=== PATIENT | female | born 1965 | race Caucasian/White ===

== ENCOUNTER 2019-12-16 12:39 | Outpatient (CLI) | payer BC, SELFPAY ==
--- NOTE | ~2019-12-16 | DEXA_ITS ---
Bone Density Report Name: Mimi Garrison Age: 54 Sex: Female Ethnicity: White Date of : 1965 Indication: osteopenia; Referring Provider: LENA NELSON Study: Bone densitometry was performed. Exam Date: December 16, 2019 Accession number: [id number] Bone Density: Region BMD T-score Z-score Classification AP Spine (L1-L4) 0.822 -2.0 -0.9 Osteopenia Femoral Neck (Left) 0.725 -1.1 0.0 Osteopenia Total Hip (Left) 0.908 -0.3 0.5 Normal Total Hip Bilateral Avg 0.922 -0.2 0.6 Normal Femoral Neck (Right) 0.739 -1.0 0.1 Normal Total Hip (Right) 0.936 0.0 0.7 Normal World Health Organization criteria for BMD impression classify patients as: Normal (T-score at or above -1.0), Osteopenia (T-score between -1.0 and -2.5), or Osteoporosis (T-score at or below -2.5). 10-year Fracture Risk(1): Major Osteoporotic Fracture 6.2% Hip Fracture 0.3% Reported Risk Factors: [place] (), Neck BMD=0.725, BMI=28.3 (1) FRAX(R) Version 3.08. Fracture probability calculated for an untreated patient. Fracture probability may be lower if the patient has received treatment. Previous Exams: Region Exam Age BMD T-score BMD Change BMD Change Date g/cm2 vs Baseline vs Previous AP Spine(L1-L4) 12/16/2019 54 0.822 -2.0 -0.053(-6.1%)# -0.043(-4.9%)* 04/03/2017 52 0.865 -1.7 -0.011(-1.2%)# -0.011(-1.2%)# 09/17/2013 48 0.876 -1.6 Total Hip(Left) 12/16/2019 54 0.908 -0.3 0.001(0.1%)# 0.006(0.6%) 04/03/2017 52 0.903 -0.3 -0.005(-0.5%)# -0.005(-0.5%)# 09/17/2013 48 0.907 -0.3 Total Hip(Right) 12/16/2019 54 0.936 0.0 0.010(1.0%)# 0.032(3.5%)* 04/03/2017 52 0.904 -0.3 -0.022(-2.4%)# -0.022(-2.4%)# 09/17/2013 48 0.927 -0.1 *Denotes significance at 95% confidence level, LSC for AP Spine = 0.022 g/cm2, LSC for Total Hip = 0.027 g/cm2 Clinical Information Provided by Patient: Has used the following medications: Calcium Patient maximum height was 61 Menopause Age: 49 No regular weight bearing exercise Drinks caffeinated beverages Onset of menses at age 13 Number of children 2 Impression: The patient has low bone mass, based on the Total Spine T-score. The patient has an estimated ten-year risk of hip fracture of 0.3% and an estimated ten-year risk of major fracture of 6.2%, based on the WHO FRAX algorithm. The BMD for the AP Spine(L1-L4) decreased, changing by -4.9% since the last DXA exam. Discussion:
== END 2019-12-16 12:40 | disposition home or self-care (01) ==
PROVIDERS: PCP Internal Medicine; Visit Provider Obstetrics & Gynecology Gynecology
DX: Z78.0 Asymptomatic menopausal state (principal); M85.89 Other specified disorders of bone density and structure, multiple sites
CPT/HCPCS: 77080

== ENCOUNTER 2020-01-28 11:16 | Outpatient (CLI) | payer BC, SELFPAY ==
--- NOTE | ~2020-01-28 | XR_ITS ---
XR hip RT min 3V w AP pelvis DATE: 01/28/2020 11:48 INDICATION: Right hip pain TECHNIQUE: AP pelvis. AP, lateral, crosstable lateral views of right hip COMPARISON: None FINDINGS: The pubic symphysis and sacroiliac joints are intact. No pelvic fracture or bone destructio n. The hip joint spaces appear symmetric and well preserved. No fracture, dislocation, avascular necr osis or bone destruction of the right hip. IMPRESSION: No significant abnormality Reviewed, dictated and finalized at location A. IMPRESSION: No significant abnormality
== END 2020-01-28 11:17 | disposition home or self-care (01) ==
LOC: ANHIMG 11:21
PROVIDERS: PCP Internal Medicine; Visit Provider Physician Assistant
DX: M25.551 Pain in right hip (principal)
CPT/HCPCS: 73502

== ENCOUNTER 2020-05-25 10:35 | Outpatient (CLI) | payer BC, SELFPAY ==
--- NOTE | ~2020-05-25 | MM_ITS ---
EXAMINATION: MM screening kiko BI w therese HISTORY: Screening TECHNIQUE: Craniocaudal and mediolateral oblique 3-D tomosynthesis images were obtained and synthetic 2-D images were generated. CAD analysis was submitted and interpreted. COMPARISON: Comparison to multiple prior studies sequentially, with oldest reviewed study dated 12/16. BREAST PARENCHYMAL COMPOSITION: There are scattered areas of fibroglandular density. FINDINGS: There is no evidence of suspicious mass, calcification, or architectural distortion to sugg est malignancy in either breast. There has been no suspicious interval change. IMPRESSION: 1. No mammographic evidence of malignancy. 2. Recommend routine screening mammography in one year. BI-RADS Category 1: Negative Reviewed, dictated and finalized at location A.
== END 2020-05-25 10:36 | disposition home or self-care (01) ==
LOC: ANHIMG 10:38
PROVIDERS: PCP Internal Medicine; Visit Provider Obstetrics & Gynecology Gynecology
DX: Z12.31 Encounter for screening mammogram for malignant neoplasm of breast (principal)
CPT/HCPCS: 77063; 77067

== ENCOUNTER 2021-03-20 08:08 | Outpatient (CLI) | payer BC, SELFPAY ==
--- NOTE | 2021-03-20 11:30 | NEURO_ITS ---
Impression: # Complains of numbness of hands. # Bilateral Carpal Tunnel Syndrome, left more than right. # No ulnar neuropathy. # Normal needle/EMG exam. Nerve Conduction Studies Anti Sensory Summary Table Stim Site NR Peak (ms) P-T Amp (?V) Site1 Site2 Delta-P (ms) Dist (cm) Felipe (m/s) Left Median Anti Sensory (2-3nd Digit) Wrist 3.6 74.2 Wrist 2-3nd Digit 3.6 14.0 39 Wrist 3.6 82.5 Wrist 2-3nd Digit 3.6 14.0 39 Right Median Anti Sensory (2-3nd Digit) Wrist 4.4 37.5 Wrist 2-3nd Digit 4.4 14.0 32 Wrist 5.0 25.7 Wrist 2-3nd Digit 4.4 14.0 32 Left Radial Anti Sensory (Base 1st Digit) Wrist 2.0 17.3 Wrist Base 1st Digit 2.0 0.0 Right Radial Anti Sensory (Base 1st Digit) Wrist 1.8 42.9 Wrist Base 1st Digit 1.8 0.0 Left Ulnar Anti Sensory (5th Digit) Wrist 2.2 61.6 Wrist 5th Digit 2.2 14.0 64 Right Ulnar Anti Sensory (5th Digit) Wrist 2.4 65.8 Wrist 5th Digit 2.4 14.0 58 Motor Summary Table Stim Site NR Onset (ms) O-P Amp (mV) Site1 Site2 Delta-0 (ms) Dist (cm) Felipe (m/s) Left Median Motor (Abd Poll Brev) Wrist 4.5 3.6 Elbow Wrist 3.8 26.0 68 Elbow 8.3 3.3 Right Median Motor (Abd Poll Brev) Wrist 3.8 0.8 Elbow Wrist 4.7 27.0 57 Elbow 8.5 1.8 ELB/ADM Wrist 0.5 0.0 Left Ulnar Motor (Abd Dig Minimi) Wrist 1.9 5.3 A Elbow Wrist 4.6 27.0 59 A Elbow 6.5 3.1 Right Ulnar Motor (Abd Dig Minimi) Wrist 2.0 7.2 A Elbow Wrist 4.7 27.0 57 A Elbow 6.7 6.0 B Elbow Wrist 6.2 0.0 F Wave Studies NR F-Lat (ms) L-R F-Lat (ms) Left Median (Mrkrs) (Abd Poll Brev) 30.02 0.57 Right Median (Mrkrs) (Abd Poll Brev) 30.58 0.57 Left Ulnar (Mrkrs) (Abd Dig Min) 25.47 0.68 Right Ulnar (Mrkrs) (Abd Dig Min) 26.15 0.68 EMG Side Muscle Nerve Root Ins Act Fibs Amp Dur Recrt Comment Right 1stDorInt Ulnar C8-T1 Nml Nml Nml Nml Nml Right Ext Indicis Radial (Post Int) C7-8 Nml Nml Nml Nml Nml Right Ext Digitorum Radial (Post Int) C7-8 Nml Nml Nml Nml Nml Right BrachioRad Radial C5-6 Nml Nml Nml Nml Nml Right PronatorTeres Median C6-7 Nml Nml Nml Nml Nml Right Abd Poll Brev Median C8-T1 Nml Nml Nml Nml Nml Left 1stDorInt Ulnar C8-T1 Nml Nml Nml Nml Nml Left Ext Indicis Radial (Post Int) C7-8 Nml Nml Nml Nml Nml Left Ext Digitorum Radial (Post Int) C7-8 Nml Nml Nml Nml Nml Left BrachioRad Radial C5-6 Nml Nml Nml Nml Nml Left PronatorTeres Median C6-7 Nml Nml Nml Nml Nml Left Abd Poll Brev Median C8-T1 Nml Nml Nml Nml Nml Right ABD Dig Min Ulnar C8-T1 Nml Nml Nml Nml Nml Left ABD Dig Min Ulnar C8-T1 Nml Nml Nml Nml Nml MTDD
== END 2021-03-20 08:09 | disposition home or self-care (01) ==
PROVIDERS: PCP Internal Medicine; Visit Provider Internal Medicine
DX: R20.2 Paresthesia of skin (principal); G56.03 Carpal tunnel syndrome, bilateral upper limbs
CPT/HCPCS: 95886; 95911

== ENCOUNTER 2021-05-31 14:15 | Outpatient (CLI) | payer BC, SELFPAY ==
--- NOTE | ~2021-05-31 | MM_ITS ---
EXAMINATION: MM screening kiko BI w therese HISTORY: Screening mammogram TECHNIQUE: Craniocaudal and mediolateral oblique 3-D tomosynthesis images were obtained and synthetic 2-D images were generated. CAD analysis was submitted and interpreted. COMPARISON: 05/25/2020 bilateral digital screening mammogram 03/02/2019 bilateral diagnostic digital mammogram and limited left breast ultrasound examination 04/09/2018 bilateral digital screening mammogram BREAST PARENCHYMAL COMPOSITION: There are scattered areas of fibroglandular density. FINDINGS: There is no evidence of suspicious mass, calcification, or architectural distortion to sugg est malignancy in either breast. There has been no suspicious interval change. IMPRESSION: 1. No mammographic evidence of malignancy. 2. Recommend routine screening mammography in one year. BI-RADS Category 1: Negative Reviewed, dictated and finalized at location A.
== END 2021-05-31 14:16 | disposition home or self-care (01) ==
LOC: ANHIMG 14:19
PROVIDERS: PCP Internal Medicine; Visit Provider Obstetrics & Gynecology Gynecology
DX: Z12.31 Encounter for screening mammogram for malignant neoplasm of breast (principal)
CPT/HCPCS: 77063; 77067

== ENCOUNTER 2021-08-02 00:03 | Day surgery (SDC) | payer BC, SELFPAY ==
[2021-05-21 12:16] VITALS: BMI 30.8
--- NOTE | 2021-05-23 09:08 | WPDANESEPPF ---
Anes - Initial Pre Proc Eval Procedure: Operation Date: 05/24/21 14:00 Proposed Procedures p Right Carpal Tunnel Release - Milton Beck MD Date/Time: 05/23/21 09:08 Surgeon: Milton Beck MD Pre Op Diagnosis: right carpal tunnel syndrome Patient Data Age: 56 Gender: F Height: 1.55 m Weight: 74 kg Allergies Allergy/AdvReac Type Severity Reaction Status Date / Time cefaclor Allergy Intermediate Swelling Verified 05/21/21 12:35 of Lip/Tongue/Throat Cephalosporins Allergy Intermediate THROAT/MOUTH Verified 05/21/21 12:35 SWELLING Penicillins Allergy Intermediate Swelling Verified 05/21/21 12:35 of Lip/Tongue/Throat vancomycin Allergy Intermediate Rash Verified 05/21/21 12:35 Home Medications Medication Instructions Recorded Confirmed Type calcium carbonate 600 mg(1,500 1 tablet PO BID 07/31/19 05/21/21 History mg)-vitamin D3 800 unit chewable tablet multivitamin 1 tablet PO DAILY 07/31/19 05/21/21 History albuterol sulfate 90 mcg/actuation 2 puff INHALATION Q4-6H PRN #8.5 gm 12/24/19 05/21/21 Rx aerosol inhaler estradiol 1 mg-progesterone 100 mg 1 cap PO QPM 04/24/20 05/21/21 History capsule meloxicam 15 mg tablet 15 mg PO DAILY #90 tablet 08/04/20 05/21/21 Rx montelukast 10 mg tablet 10 mg PO DAILY #90 tablet 08/04/20 05/21/21 Rx hydroxychloroquine 200 mg tablet 200 mg PO BID #180 tablet 08/18/20 05/21/21 Rx cyclobenzaprine 10 mg tablet 10 mg PO .QHS PRN #30 tablet 09/05/20 05/21/21 Rx nortriptyline 50 mg capsule 50 mg PO DAILY #90 cap 09/13/20 05/21/21 Rx topiramate 100 mg tablet 100 mg PO DAILY #90 tablet 09/13/20 05/21/21 Rx rizatriptan 10 mg tablet 10 mg PO ONCE PRN #36 tablet 01/11/21 05/21/21 Rx fluoxetine 20 mg capsule 20 mg PO DAILY #90 cap 04/06/21 05/21/21 Rx galcanezumab-gnlm 120 mg/mL 120 mg SUBCUT MONTHLY #3 ml 04/10/21 05/21/21 Rx subcutaneous pen injector rabeprazole 20 mg tablet,delayed 20 mg PO DAILY #90 tablet 05/02/21 05/21/21 Rx release [facility] Past Medical History Medical History (Updated 05/23/21 @ 09:09 by Andrew Perdue DO) GERD (gastroesophageal reflux disease) PONV (postoperative nausea and vomiting) severe Family History Family History (Updated 05/19/14 @ 07:13 by DOCTOR UNKNOWN) Mother Family history of chronic obstructive pulmonary disease Patient's mother is Father Patient's father is Social History Social History Smoking status: Former smoker Tobacco type: cigarettes Second hand tobacco smoke exposure: No Smoking end date: 09/22/96 Alcohol intake: current Substance use: never Substance use type: does not use Last use: 1994 Spiritual care concerns: No Anes - Eval Final PreProcedure Day of Procedure 05/23/21 09:08 Patient weight: obese Heart: regular rate and rhythm Lungs: clear to auscultation and normal air movement Airway: Mallampati scale class II Neurological: alert and oriented Last oral intake: >/= 8 hours ASA classification: II Emergent: no Anesthetic plan: proceed Anesthesia type and monitoring: general GIVS and standard monitoring Informed Consent: The patient's anesthetic plan and its attendant risks and benefits were discussed with the patient/family/POA. Questions were solicited and answers provided to the satisfaction of the patient/family/POA.
[2021-07-30 08:50] VITALS: BMI 30.8
--- NOTE | 2021-07-30 08:54 | PC.NURSE ---
Report to the Outpatient Waiting Room, entrance under the green pavilion located off [facility], at time 0830 on date 08/02/21. OR Time: 1030. - You and your visitor will be asked a series of questions to screen for COVID 19 for your protection. - A mask is required within the hospital. - Only one visitor is allowed at this time. Patient visitors will be guided where to wait when not with patient. Preoperative COVID Testing Requirements: TO BRING COPY OF CARD! No COVID Test needed if: (proof is required; if not received patient will have Rapid Test prior to entry) - Patient has received COVID Vaccine at least 14 days prior to procedure date or - Patient has positive COVID test result within last 90 days of surgery date. COVID Test needed if above criteria is not met If not COVID vaccinated a COVID test must be conducted within 72 hours of surgery and patient is asked to isolate self from time of testing until procedure. You will go to the [employer] [facility] for your COVID testing. The [employer] [facility] site is located at the corner of [address] [facility]. You will only be called if COVID results are positive and your surgeon may reschedule your elective surgery date. Patients may have clear liquids (water, carbonated beverages, clear teas, apple juice) until 3 hours prior to surgery with a maximum of 20 ounces. - No food from midnight until time of surgery - Infants may have breast milk until 4 hours before surgery, formula 6 hours prior to surgery. - Children will be allowed to drink immediately following surgery. If applicable, please bring a bottle or sippy cup to assist with drinking. Juice, water, soda, and popsicles are readily available. For infants on formula, please bring formula the day of surgery. Pacifiers are allowed. Take the following medications with a SIP of water the morning of surgery: FLUOXETINE, TOPIRAMATE, NORTRIPTYLINE, PLAQUENIL Medications to discontinue per physician: VITAMINS/SUPPLEMENTS Date to take last dose: 3 DAYS PRE-OP-----MELOXICAM PER DR. PANTOJA Please no make-up, nail montserratian, hairspray, perfume, deodorant, or body powder the day of surgery. No jewelry (including any body piercings) or valuables the day of surgery, leave them at home. Please take a shower or bath the night before, or the morning of, surgery with an antibacterial soap. Wear comfortable, loose fitting clothing. Children are encouraged to wear pajamas. - Jewelry must be removed prior to entering the operating room. Rings and piercings that are not removed may be cut off. - The hospital will not accept responsibility for valuables. - Please leave all valuables, including medications, at home the day of surgery. If you are going home after surgery, a licensed local company flatbed truck driver must drive you home. - NO public transportation without another adult. - We recommend that an adult stay with you for 24 hours following discharge. - We also recommend that you do not drive, make important decision, drink alcoholic beverages, or take any drugs that were not prescribed by your health care provider for at least 24 hours after your discharge time. For Pediatric surgeries, we recommend two adults accompany the child home (only one inside the building at this time). Follow any additional instructions given to you from your surgeon. Telephone instructions given to ANNIKA NDIAYE and asked if any additional questions and then verbalized understanding. Patient advised to call surgeon office or pre surgery nurse liaison [phone] if any additional questions.
--- NOTE | 2021-08-01 13:53 | WPDANESEPPF ---
Anes - Initial Pre Proc Eval Procedure: Operation Date: 08/02/21 10:30 Proposed Procedures p Right Carpal Tunnel Release - Milton Beck MD Date/Time: 08/01/21 13:53 Surgeon: Milton Beck MD Pre Op Diagnosis: right carpal tunnel syndrome Patient Data Age: 56 Gender: F Height: 1.55 m Weight: 74 kg Allergies Allergy/AdvReac Type Severity Reaction Status Date / Time cefaclor Allergy Intermediate Swelling Verified 08/02/21 08:34 of Lip/Tongue/Throat Cephalosporins Allergy Intermediate THROAT/MOUTH Verified 08/02/21 08:34 SWELLING Penicillins Allergy Intermediate Swelling Verified 08/02/21 08:34 of Lip/Tongue/Throat vancomycin Allergy Intermediate Rash Verified 08/02/21 08:34 Home Medications Medication Instructions Recorded Confirmed Type calcium carbonate 600 mg(1,500 1 tablet PO BID 07/31/19 08/02/21 History mg)-vitamin D3 800 unit chewable tablet multivitamin 1 tablet PO DAILY 07/31/19 08/02/21 History estradiol 1 mg-progesterone 100 mg 1 cap PO QPM 04/24/20 08/02/21 History capsule meloxicam 15 mg tablet 15 mg PO DAILY #90 tablet 08/04/20 08/02/21 Rx montelukast 10 mg tablet 10 mg PO DAILY #90 tablet 08/04/20 08/02/21 Rx hydroxychloroquine 200 mg tablet 200 mg PO BID #180 tablet 08/18/20 08/02/21 Rx fluoxetine 20 mg capsule 20 mg PO DAILY #90 cap 04/06/21 08/02/21 Rx galcanezumab-gnlm 120 mg/mL 120 mg SUBCUT MONTHLY #3 ml 04/10/21 08/02/21 Rx subcutaneous pen injector rabeprazole 20 mg tablet,delayed 20 mg PO DAILY #90 tablet 05/02/21 08/02/21 Rx release topiramate 100 mg tablet 100 mg PO DAILY #90 tablet 07/06/21 08/02/21 Rx nortriptyline 50 mg capsule 50 mg PO DAILY #90 cap 08/01/21 08/02/21 Rx Patient hx anesthesia problems: none Family hx anesthesia problems: none Results Review: All pre-operative results and documents have been reviewed as part of the pre-operative evaluation. [facility] Past Medical History Medical History (Updated 08/01/21 @ 13:53 by Kirit Anna MD) GERD (gastroesophageal reflux disease) Hyperlipidemia Obesity PONV (postoperative nausea and vomiting) severe Family History Family History Mother Family history of chronic obstructive pulmonary disease Patient's mother is Father Patient's father is Social History Social History Smoking packs per day: 1 Smoking cigarettes per day: 20.0 Years smoked: 19 Smoking pack-years: 19.00 Smoking status: Former smoker Tobacco type: cigarettes Second hand tobacco smoke exposure: No Smoking end date: 09/22/96 Alcohol intake: current Drinks per week: 1 Substance use: never Substance use type: does not use Living arrangements: with family Spiritual care concerns: No Anes - Eval Final PreProcedure Day of Procedure 08/01/21 13:53 Patient weight: obese Heart: regular rate and rhythm Lungs: clear to auscultation and normal air movement Airway: Mallampati scale class II Neurological: alert and oriented Last oral intake: >/= 8 hours ASA classification: II Emergent: no Anesthetic plan: proceed Anesthesia type and monitoring: general GIVS Results Review: All pre-operative results and documents have been reviewed as part of the pre-operative evaluation. Informed Consent: The patient's anesthetic plan and its attendant risks and benefits were discussed with the patient/family/POA. Questions were solicited and answers provided to the satisfaction of the patient/family/POA.
--- NOTE | 2021-08-02 07:16 | WPDHPUPDATE1 ---
History and Physical Update Update Date/Time: 08/02/21 07:16 History and Physical has been reviewed, including an updated exam of the patient. There are NO changes in the patient's condition. Risks, benefits, and alternatives have been discussed and questions answered. Patient agrees to proceed with procedure.
[2021-08-02 08:43] VITALS: BP 120/79; PULSE 98; RESP 16; TEMP 36.9; O2SAT 99
[2021-08-02] MEDS: ACETAMINOPHEN 500 MG TABLET 1000 MG PO (08:59)
[2021-08-02] MEDS: LACTATED RINGERS 1,000 ML 30 ML IV CONT (08:59)
[2021-08-02] MEDS: KETOROLAC 15 MG/ML VIAL (*BKC) IV PUSH (09:01)
[2021-08-02 10:40] VITALS: BP 110/61; PULSE 52; RESP 19; O2SAT 99
[2021-08-02 10:50] VITALS: BP 110/68; PULSE 80; RESP 16; O2SAT 100
[2021-08-02 10:55] VITALS: BP 123/75; PULSE 77; RESP 16; O2SAT 99
--- NOTE | 2021-08-02 13:15 | P.OP_ITS ---
Procedure Note - Detailed Date of Procedure 08/02/21 Pre-op Diagnosis right carpal tunnel syndrome Post-op Diagnosis same Procedure Performed Right carpal tunnel release. Surgeon Milton Beck MD [employer] PA-C Anesthesia general Description of Procedure Operative details. The hand was prepped and draped in the usual sterile fashion sedation anesthesia was given with propofol. The proposed incision was marked using typical anatomic landmarks. 3ML 0.5% Marcaine was injected along the incision line and at the distal forearm. The limb was exsanguinated and the tourniquet inflated to 250 millimeters of mercury. A longitudinal incision was taken sharply. Dissection was brought down to the transverse carpal ligament. Under direct vision the ligament was incised sharply. The proximal release was carried out with dissection scissors. The contents of the carpal canal were protected with a [place] elevator. The transverse carpal ligament was confirmed to be widely patent. The tourniquet was released. Hemostasis was obtained. The wound was closed with a horizontal mattress Prolene suture. A sterile bulky dressing was applied. The patient was brought to the recovery room in stable condition. There were no complications. Estimated Blood Loss 2 Drains No Pathology none sent Complications No immediate complications Condition stable Disposition PACU
== END 2021-08-02 11:27 | disposition home or self-care (01) ==
PROVIDERS: PCP Internal Medicine; Visit Provider Orthopaedic Surgery
PROC: (CPT 64721; principal; 2021-08-02 10:30)
DX: G56.01 Carpal tunnel syndrome, right upper limb (principal); E78.5 Hyperlipidemia, unspecified; K21.9 Gastro-esophageal reflux disease without esophagitis; Z87.891 Personal history of nicotine dependence; E66.9 Obesity, unspecified; Z68.31 Body mass index [BMI] 31.0-31.9, adult
CPT/HCPCS: 64721; A9270; J1885; J2704; J7120

== ENCOUNTER 2022-09-26 14:45 | Outpatient (CLI) | payer BC, SELFPAY ==
--- NOTE | ~2022-09-26 | MM_ITS ---
EXAMINATION: MM screening [facility] BI w therese HISTORY: Screening mammogram TECHNIQUE: Craniocaudal and mediolateral oblique 3-D tomosynthesis images were obtained and synthetic 2-D images were generated. CAD analysis was submitted and interpreted. COMPARISON: 05/31/2021, 05/25/2020, 03/02/2019, 04/09/2018 BREAST PARENCHYMAL COMPOSITION: There are scattered areas of fibroglandular density. FINDINGS: No suspicious mass, calcification, or architectural distortion are identified in either dee ast to suggest malignancy. There has been no suspicious interval change. IMPRESSION: 1. No mammographic evidence of malignancy. 2. Recommend routine screening mammography in one year. BI-RADS Category 1: Negative Reviewed, dictated and finalized at location A. 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
--- NOTE | ~2022-09-26 | DEXA_ITS ---
Bone Density Report Name: ANNIKA NDIAYE Age: 57 Sex: Female Ethnicity: White Date of : 1965 Indication: postmenopausal; screening for osteoporosis; Referring Provider: LENA NELSON Study: Bone densitometry was performed. Exam Date: September 26, 2022 Accession number: [id number] Bone Density: Region BMD T-score Z-score Classification AP Spine(L1-L4) 0.861 -1.7 -0.3 Osteopenia Femoral Neck (Left) 0.735 -1.0 0.2 Normal Total Hip (Left) 0.875 -0.5 0.4 Normal Femoral Neck (Right) 0.733 -1.0 0.2 Normal Total Hip (Right) 0.903 -0.3 0.6 Normal Total Hip Mean 0.889 -0.4 0.5 Normal World Health Organization criteria for BMD impression classify patients as: Normal (T-score at or above -1.0), Osteopenia (T-score between -1.0 and -2.5), or Osteoporosis (T-score at or below -2.5). 10-year Fracture Risk(1): Major Osteoporotic Fracture 6.6% Hip Fracture 0.3% Reported Risk Factors: [place] (), Neck BMD=0.735, BMI=32.3 (1) FRAX(R) Version 3.08. Fracture probability calculated for an untreated patient. Fracture probability may be lower if the patient has received treatment. Previous Exams: Region Exam Age BMD T-score BMD Change BMD Change Date g/cm2 vs Baseline vs Previous Total Hip(Left) 09/26/2022 57 0.875 -0.5 -0.032 (-3.5%) -0.033 (-3.6%) 12/16/2019 54 0.908 -0.3 0.001 (0.1%)# 0.006 (0.6%) 04/03/2017 52 0.903 -0.3 -0.005 (-0.5%) -0.005 (-0.5%) 09/17/2013 48 0.907 -0.3 Total Hip(Right) 09/26/2022 57 0.903 -0.3 -0.023 (-2.5%) -0.033 (-3.5%) 12/16/2019 54 0.936 0.0 0.010 (1.0%)# 0.032 (3.5%)* 04/03/2017 52 0.904 -0.3 -0.022 (-2.4%) -0.022 (-2.4%) 09/17/2013 48 0.927 -0.1 *Denotes significance at 95% confidence level, LSC for Total Hip = 0.027 g/cm2 # Denotes dissimilar scan types or analysis methods Clinical Information Provided by Patient: Has used the following medications: Vitamin D, Calcium Patient maximum height was 61 Menopause Age: 50 No regular weight bearing exercise Drinks caffeinated beverages Onset of menses at age 13 Number of children 2 Impression: The patient has low bone mass, based on the Total Spine T-score. The patient has an estimated ten-year risk of hip fracture of 0.3% and an estimated ten-year risk of major fracture of 6.6%, based on the WHO FRAX algorithm. The BMD for the Total Hip(Left) decreased, changing by -3.6% since the last DXA exam. The BMD for the Total Hip(Right
== END 2022-09-26 14:46 | disposition home or self-care (01) ==
PROVIDERS: PCP Internal Medicine; Visit Provider Obstetrics & Gynecology Gynecology
DX: Z12.31 Encounter for screening mammogram for malignant neoplasm of breast (principal); Z78.0 Asymptomatic menopausal state; M85.89 Other specified disorders of bone density and structure, multiple sites
CPT/HCPCS: 77063; 77067; 77080

== ENCOUNTER 2023-01-31 07:40 | Outpatient (CLI) | payer BC, SELFPAY ==
--- NOTE | ~2023-01-31 | CT_ITS ---
CT scan of the Neck Technique: 2.5 mm axial scans were obtained through the neck after intravenous administration of 75 c c Omnipaque 350. Coronal and sagittal reconstructions of the neck were obtained. Dose reduction techn ique was used on this scan by utilizing automated exposure control and iterative reconstruction techn ique. The dose-length product (DLP) was 582.30 mGy-cm. Clinical History: Left supraclavicular mass Findings: There is no evidence of any significant cervical lymphadenopathy. Several small, nonenlarged jugulo- digastric and posterior cervical lymph nodes are noted bilaterally. Parapharyngeal spaces appear norm al bilaterally. The parotid and submandibular glands appear normal. The pharyngeal mucosal spaces appear normal. No soft tissue masses are seen in the neck. The thyroid gland appears normal. Images of the lung apices reveal mild biapical groundglass opacity, nonspecific. Impression: No significant abnormalities noted in the neck. In particular, no left supraclavicular mass seen. Mild biapical pulmonary groundglass opacity, nonspecific. Reviewed, dictated and finalized at [facility]. Impression: No significant abnormalities noted in the neck. In particular, no left supracla vicular mass seen. Mild biapical pulmonary groundglass opacity, nonspecific.
== END 2023-01-31 07:41 | disposition home or self-care (01) ==
PROVIDERS: PCP Internal Medicine; Visit Provider Internal Medicine
DX: R22.2 Localized swelling, mass and lump, trunk (principal)
CPT/HCPCS: 70491; Q9967

== ENCOUNTER 2023-05-15 13:35 | Outpatient (CLI) | payer BC, SELFPAY ==
--- NOTE | ~2023-05-15 | CT_ITS ---
EXAMINATION: CT brain w con DATE: 05/15/2023 15:20 INDICATION: Migraine headache TECHNIQUE: Computed tomography (CT) of the head was performed with 100 CC Omnipaque 350 intravenous c ontrast. The mA was adjusted according to patient size. Iterative reconstruction technique was employ ed. Exam dose: 605.33 mGy-cm total exam DLP. COMPARISON: 04/04/2016 CT brain FINDINGS: No intracranial mass lesion or hemorrhage or cerebrovascular accident. No midline shift or mass effect. Normal ventricular size. Normal bob-white matter differentiation. No subdural or epidural hematoma. Bilateral nasal antral windows are suggested. The mastoid air cells and included paranasal sinuses ar e normally developed and aerated. No fracture or bone destruction of the cranial vault. IMPRESSION: No significant intracranial abnormality Reviewed, dictated and finalized at [facility]. Reviewed, dictated and finalized at location A.
[2023-05-15 15:11] LABS: Estimated Glomerular Filt Rate 51
== END 2023-05-15 13:36 | disposition home or self-care (01) ==
LOC: ANHIMG 13:37
PROVIDERS: PCP Internal Medicine; Visit Provider Internal Medicine
DX: G43.909 Migraine, unspecified, not intractable, without status migrainosus (principal); Z82.49 Family history of ischemic heart disease and other diseases of the circulatory system; R42 Dizziness and giddiness
CPT/HCPCS: 70460; Q9967

== ENCOUNTER 2023-05-23 08:33 | Outpatient (CLI) | payer BC, SELFPAY ==
--- NOTE | ~2023-05-23 | CT_ITS ---
EXAMINATION: CTA chest DATE: 05/23/2023 09:12 INDICATION: Chest pain. TECHNIQUE: Computed tomographic angiography (CTA) of the chest was performed with 100 mL Omnipaque-35 0 intravenous contrast. Automated exposure control and iterative reconstruction technique were employ ed. The dose-length product was 384.30 mGy-cm. Maximum intensity projection 3D-reconstructions of the aorta and other arteries were constructed by the technologist on a separate workstation. COMPARISON: Neck CT 01/31/2023 FINDINGS: There is mild emphysema. There is mild peripheral septal thickening in the lungs. No bronch iectasis or honeycombing. No pleural effusion. The heart size is normal. No pericardial effusion. Tho racic aorta is normal. There are changes of cholecystectomy. There is no significant stenosis of rakesh ac axis, superior mesenteric artery, or the renal arteries. There is thoracic dextroscoliosis and mil d spondylosis. IMPRESSION: 1. Normal thoracic aorta. 2. Mild emphysema. 3. Mild peripheral septal thickening in the lungs again seen, likely mild chronic lung disease. Reviewed, dictated and finalized at location E. IMPRESSION: 1. Normal thoracic aorta. 2. Mild emphysema. 3. Mild peripheral septal thickening in the lungs again seen, likely mild chron ic lung disease.
--- NOTE | ~2023-05-23 | US_ITS ---
EXAMINATION: US carotid duplex BI DATE: 05/23/2023 10:12 INDICATION: Dizziness and giddiness TECHNIQUE: Grayscale, color Doppler, and pulsed Doppler images of the cervical carotid arteries were obtained. The degree of vessel stenosis is placed in one of the following categories: normal, <50%, 5 0-69%, >=70% but less than near-occlusion, near-occlusion, or total occlusion. Note that percent sten osis relative to normal distal artery lumen diameter is indirectly measured from velocity measurement s as described by Jose, et al. Radiology 2003; 229:340-346. COMPARISON: None. FINDINGS: RIGHT: The right common carotid artery (CCA) peak systolic velocity (PSV) is 117 cm/s. The right internal ca rotid artery (ICA) PSV is 92 cm/s. The right ICA end-diastolic velocity (EDV) is 46 cm/s. The right I CA/CCA PSV ratio is 0.8. Grayscale and color Doppler images yield an estimate of <50% diameter reduct ion from plaque in the ICA. The external carotid artery (ECA) PSV is 78 cm/s. There is antegrade flow in the right vertebral artery. LEFT: The left CCA PSV is 89 cm/s. The left ICA PSV is 89 cm/s. The left ICA EDV is 43 cm/s. The left ICA/C CA PSV ratio is 1.0. Grayscale and color Doppler images yield an estimate of <50% diameter reduction from plaque in the ICA. The ECA PSV is 87 cm/s. There is antegrade flow in the left vertebral artery. Notes: normal: PSV<125 and no plaque <50%: PSV<125 (EDV<40;ICA/CCA PSV ratio<2.0; use these factors only if tandem lesions or low cardiac output or contralateral disease) 50-69%: PSV 125-230 (EDV 40-100;ratio 2.0-4.0) >=70% but less than near occlusion: PSV>230(EDV>100;ratio>4.0) near-occlusion: PSV variable; markedly narrowed lumen occlusion: absent flow on color/spectral Doppler and no lumen on grayscale IMPRESSION: 1. stenosis in the right internal carotid artery. 2. stenosis in the left internal carotid artery. Reviewed, dictated and finalized at location A.
== END 2023-05-23 08:34 | disposition home or self-care (01) ==
PROVIDERS: PCP Internal Medicine; Visit Provider Internal Medicine
DX: R42 Dizziness and giddiness (principal); R07.9 Chest pain, unspecified; Z82.49 Family history of ischemic heart disease and other diseases of the circulatory system; J43.9 Emphysema, unspecified; R91.8 Other nonspecific abnormal finding of lung field; I65.23 Occlusion and stenosis of bilateral carotid arteries
CPT/HCPCS: 71275; 93880; Q9967

== ENCOUNTER 2023-06-13 09:24 | Outpatient (CLI) | payer BC, SELFPAY ==
--- NOTE | 2023-06-13 09:27 | ECHO_ITS ---
Patient Info Name: Mimi Garrison Age: 58 years : 1965 Gender: Female Ht: 61 in Wt: 168 lbs BSA: 1.84 m2 HR: 104 bpm BP: 116 / 83 mmHg Heart Rhythm: Sinus Rhythm Technical Quality: Fair Exam Date: 06/13/2023 9:45 AM Exam Location: [facility] Patient Status: Outpatient Admit Date: 06/13/2023 Staff Ordering Physician: Chucho Bentley DO Lab Asst: Danii Hidalgo RDCS Attending Provider: Chucho Bentley DO Referring Physician: Sheree QUINTERO; Exam Type: CA echo doppler color flow Study Info Indications Z82.49 - Family history of ischemic heart disease and other diseases of the circulatory system Complete two-dimensional, color flow and Doppler transthoracic echocardiogram is performed. Summary 1. Complete two-dimensional, color flow and Doppler transthoracic echocardiogram is performed. 2. Left ventricular chamber dimension is normal. 3. Left ventricular systolic function is normal, estimated at 65-70%. 4. The left ventricular diastolic function is grade I diastolic dysfunction. 5. E/e' 9 is minimally elevated. 6. No pulmonary hypertension, estimated pulmonary arterial systolic pressure is 27 mmHg. Left Ventricle E/e' 9 is minimally elevated. Left ventricular chamber dimension is normal. Left ventricular systolic function is normal, estimated at 65-70%. The left ventricular diastolic function is grade I diastolic dysfunction. Right Ventricle Right ventricular systolic function is normal and with normal TAPSE 2.0 cm. Right ventricular chamber dimension is normal. Left Atria Left atrial chamber dimension is normal. Right Atria Right atrial chamber dimension is normal. Aortic Valve The aortic valve is trileaflet. There is no aortic valve stenosis. There is no aortic valve regurgitation. Pulmonic Valve There is no pulmonic regurgitation. Mitral Valve There is no mitral valve stenosis. There is no mitral valve regurgitation. Tricuspid Valve There is no tricuspid valve regurgitation. No pulmonary hypertension, estimated pulmonary arterial systolic pressure is 27 mmHg. Pericardium/Pleural There is no pericardial effusion. Inferior Vena Cava Normal inferior vena cava with >50% collapse upon inspiration consistent with normal right atrial pressure, 5 mmHg. Aorta The aortic root size at the sinus of Valsalva is normal. Left Ventricular Outflow Tract Name Value Normal LVOT 2D LVOT Diameter 2.0 cm LVOT Doppler LVOT Peak Gradient 4 mmHg LVOT Mean Gradient 2 mmHg LVOT VTI 14 cm LVOT VTI/AV VTI Ratio 0.6 LVOT Stroke Volume 44 ml LVOT CO 11.5 l/min LVOT CI 6.3 l/min/m2 Pulmonic Valve Name Value Normal RVOT Doppler RVOT Peak Gradient 3 mmHg PV Doppler
== END 2023-06-13 09:25 | disposition home or self-care (01) ==
PROVIDERS: PCP Internal Medicine; Visit Provider Internal Medicine
DX: Z82.49 Family history of ischemic heart disease and other diseases of the circulatory system (principal)
CPT/HCPCS: 93306

== ENCOUNTER 2023-09-25 00:37 | Day surgery (SDC) | payer BC, SELFPAY ==
[2023-08-28 14:41] VITALS: BMI 31.2
--- NOTE | 2023-09-23 09:51 | SUR.PREOP ---
Patient called regarding upcoming procedure. Reviewed preop instructions, appointment times, and procedure prep. Pt has no further questions.
--- NOTE | 2023-09-23 20:53 | PM.HPGS ---
History of Present Illness History of Present Illness Consent: Risks, benefits, and alternatives have been discussed and questions answered. Patient agrees to proceed with procedure. Chief complaint: HX colon polyps,GERD Narrative: Mimi Garrison is a 58 year old female with symptomatic GERD, and a history of polyps. She has been on generic Nexium for quite a while but is having regurgitation frequently as she describes wet burps heartburn is generally controlled but she does have breakthrough of that as well. Review of Systems Review of Systems: All systems reviewed & are unremarkable except as noted in HPI and below PMFSH Past Medical History Medical History GERD (gastroesophageal reflux disease) Hyperlipidemia Obesity PONV (postoperative nausea and vomiting) severe Family History Family History Mother Family history of chronic obstructive pulmonary disease Patient's mother is Father Patient's father is Social History Social History Smoking packs per day: 1 Smoking cigarettes per day: 20.0 Years smoked: 19 Smoking pack-years: 19.00 Smoking status: Former smoker Tobacco type: cigarettes Second hand tobacco smoke exposure: No Smoking end date: 09/22/96 Alcohol intake: current Drinks per week: 1 Substance use: never Substance use type: does not use Living arrangements: with family Spiritual care concerns: No Meds Home Medications and Allergies Home Medications Medication Instructions Recorded Confirmed Type calcium carbonate 600 mg-vitamin 1 tablet PO BID 07/31/19 08/28/23 History D3 20 mcg (800 unit) chewable tablet (Caltrate 600 plus D) multivitamin (Daily Multiple 1 tablet PO DAILY 07/31/19 08/28/23 History tablet) estradiol-norethindrone acet 1 1 tablet PO DAILY 02/20/22 08/28/23 History mg-0.5 mg tablet (Mimvey) hydroxychloroquine 200 mg tablet 200 mg PO BID #60 tabs 04/29/22 08/28/23 Rx (Plaquenil) esomeprazole magnesium 40 mg 40 mg PO DAILY 06/11/22 08/28/23 History capsule,delayed release (Nexium) albuterol sulfate 90 mcg/actuation 2 puff inhalation Q4-6H PRN 02/27/23 08/28/23 Rx aerosol inhaler shortness of breath or wheezing #8.5 grams Emgality Pen 120 mg/mL 120 mg subcut MONTHLY #3 mL 04/17/23 08/28/23 Rx subcutaneous pen injector (galcanezumab-gnlm) fluoxetine 10 mg capsule 10 mg PO DAILY #90 caps 06/04/23 08/28/23 Rx fluoxetine 20 mg capsule 20 mg PO DAILY #90 caps 06/04/23 08/28/23 Rx topiramate 100 mg tablet 100 mg PO DAILY #90 tabs 06/16/23 08/28/23 Rx nortriptyline 50 mg capsule 50 mg PO DAILY #90 caps 07/11/23 08/28/23 Rx montelukast 10 mg tablet 10 mg PO DAILY #90 tabs 07/25/23 08/28/23 Rx (Singulair) Allergies Allergy/AdvReac Type Severity Reaction Status Date / Time cefaclor Allergy Intermediate Swelling Verified 09/25/23 07:27 of Lip/Tongue/Throat Cephalosporins Allergy Intermediate THROAT/MOUTH Verified 09/25/23 07:27 SWELLING Penicillins Allergy Intermediate Swelling Verified 09/25/23 07:27 of Lip/Tongue/Throat vancomycin Allergy Intermediate Rash Verified 09/25/23 07:27 Exam Const: General: alert Orientation/consciousness: patient oriented x3 Resp: Auscultation: clear to auscultation bilaterally Cardio: Rhythm: regular rhythm GI: GI Palp: Yes Soft to palpation and No Tenderness to palpation present (GI) Neuro: General: patient oriented x3 Assessment and Plan Assessment and plan (1) GERD (gastroesophageal reflux disease): Code(s): K21.9 - Gastro-esophageal reflux disease without esophagitis Status: Acute Assessment and Plan: EGD with possible biopsy or dilatation or cautery. (2) Colon cancer screening: Code(s): Z12.11 - Encounter for
[2023-09-25 07:29] VITALS: BP 115/64; PULSE 86; RESP 18; TEMP 36.3; O2SAT 97
[2023-09-25] MEDS: LACTATED RINGERS 1,000 ML 150 ML IV CONT (07:36)
--- NOTE | 2023-09-25 08:04 | WPDANESEPPF ---
Anes - Initial Pre Proc Eval Procedure: Operation Date: 09/25/23 08:30 Proposed Procedures p Esophagogastroduodenoscopy & Colonoscopy - Rikki Carcamo MD Date/Time: 09/25/23 08:04 Surgeon: Rikki Carcamo MD Pre Op Diagnosis: HX colon polyps,GERD Patient Data Age: 58 Gender: F Height: 1.55 m Weight: 74.8 kg Last Vital Signs Temp 97.4 F L 09/25/23 07:29 Pulse 86 09/25/23 07:29 Resp 18 09/25/23 07:29 BP 115/64 09/25/23 07:29 Pulse Ox 97 09/25/23 07:29 O2 Del Method Room Air 09/25/23 07:29 Allergies Allergy/AdvReac Type Severity Reaction Status Date / Time cefaclor Allergy Intermediate Swelling Verified 09/25/23 07:27 of Lip/Tongue/Throat Cephalosporins Allergy Intermediate THROAT/MOUTH Verified 09/25/23 07:27 SWELLING Penicillins Allergy Intermediate Swelling Verified 09/25/23 07:27 of Lip/Tongue/Throat vancomycin Allergy Intermediate Rash Verified 09/25/23 07:27 Home Medications Medication Instructions Recorded Confirmed Type calcium carbonate 600 mg-vitamin 1 tablet PO BID 07/31/19 08/28/23 History D3 20 mcg (800 unit) chewable tablet (Caltrate 600 plus D) multivitamin (Daily Multiple 1 tablet PO DAILY 07/31/19 08/28/23 History tablet) estradiol-norethindrone acet 1 1 tablet PO DAILY 02/20/22 08/28/23 History mg-0.5 mg tablet (Mimvey) hydroxychloroquine 200 mg tablet 200 mg PO BID #60 tabs 04/29/22 08/28/23 Rx (Plaquenil) esomeprazole magnesium 40 mg 40 mg PO DAILY 06/11/22 08/28/23 History capsule,delayed release (Nexium) albuterol sulfate 90 mcg/actuation 2 puff inhalation Q4-6H PRN 02/27/23 08/28/23 Rx aerosol inhaler shortness of breath or wheezing #8.5 grams Emgality Pen 120 mg/mL 120 mg subcut MONTHLY #3 mL 04/17/23 08/28/23 Rx subcutaneous pen injector (galcanezumab-gnlm) fluoxetine 10 mg capsule 10 mg PO DAILY #90 caps 06/04/23 08/28/23 Rx fluoxetine 20 mg capsule 20 mg PO DAILY #90 caps 06/04/23 08/28/23 Rx topiramate 100 mg tablet 100 mg PO DAILY #90 tabs 06/16/23 08/28/23 Rx nortriptyline 50 mg capsule 50 mg PO DAILY #90 caps 07/11/23 08/28/23 Rx montelukast 10 mg tablet 10 mg PO DAILY #90 tabs 07/25/23 08/28/23 Rx (Singulair) Patient hx anesthesia problems: none Family hx anesthesia problems: none Results Review: All pre-operative results and documents have been reviewed as part of the pre-operative evaluation. [facility] Past Medical History Medical History GERD (gastroesophageal reflux disease) Hyperlipidemia Obesity PONV (postoperative nausea and vomiting) severe Family History Family History Mother Family history of chronic obstructive pulmonary disease Patient's mother is Father Patient's father is Social History Social History Smoking packs per day: 1 Smoking cigarettes per day: 20.0 Years smoked: 19 Smoking pack-years: 19.00 Smoking status: Former smoker Tobacco type: cigarettes Second hand tobacco smoke exposure: No Smoking end date: 09/22/96 Alcohol intake: current Drinks per week: 1 Substance use: never Substance use type: does not use Living arrangements: with family Spiritual care concerns: No Anes - Eval Final PreProcedure Day of Procedure 09/25/23 08:04 Patient weight: normal Heart: regular rate and rhythm Lungs: clear to auscultation Airway: Mallampati scale class II Neurological: alert and oriented Last oral intake: >/= 8 hours ASA classification: II Emergent: no Anesthetic plan: proceed Anesthesia type and monitoring: general GIVS and standard monitoring Results Review: All pre-operative results and documents have been reviewed as part of the pre-operative evaluation. Informed Consent: The patient's anesthetic plan and i
--- NOTE | 2023-09-25 08:49 | SUR.OPER ---
EGD: Start 08:37, End 08:40 Colonoscopy: Start 08:47, End 08:56
[2023-09-25 09:01] VITALS: BP 127/74; PULSE 91; RESP 20; O2SAT 97
[2023-09-25 09:11] VITALS: BP 113/84; PULSE 88; RESP 18; O2SAT 97
[2023-09-25 09:21] VITALS: BP 126/73; PULSE 86; RESP 18; O2SAT 96
== END 2023-09-25 09:30 | disposition home or self-care (01) ==
PROVIDERS: PCP Internal Medicine; Visit Provider Internal Medicine Gastroenterology
PROC: 0DJ08ZZ Inspection of Upper Intestinal Tract, Via Natural or Artificial Opening Endoscopic (ICD-10-PCS; CPT 43235; principal; 2023-09-25 08:30)
DX: Z12.11 Encounter for screening for malignant neoplasm of colon (principal); K21.00 Gastro-esophageal reflux disease with esophagitis, without bleeding; E78.5 Hyperlipidemia, unspecified; Z79.51 Long term (current) use of inhaled steroids; Z79.85 Long-term (current) use of injectable non-insulin antidiabetic drugs; Z87.891 Personal history of nicotine dependence; Z86.010 Personal history of colon polyps
CPT/HCPCS: 43239; 45378; 88305; 88312; J2704; J7120

== ENCOUNTER 2024-01-21 09:57 | Outpatient (CLI) | payer BC, SELFPAY ==
--- NOTE | ~2024-01-21 | MM_ITS ---
EXAMINATION: MM screening kiko BI w therese HISTORY: Screening TECHNIQUE: Craniocaudal and mediolateral oblique 3-D tomosynthesis images were obtained and synthetic 2-D images were generated. CAD analysis was submitted and interpreted. COMPARISON: Comparison to multiple prior studies sequentially, with oldest reviewed study dated 04/03. BREAST PARENCHYMAL COMPOSITION: Not dense: There are scattered areas of fibroglandular density. FINDINGS: There is no evidence of suspicious mass, calcification, or architectural distortion to sugg est malignancy in either breast. There has been no suspicious interval change. IMPRESSION: 1. No mammographic evidence of malignancy. 2. Recommend routine screening mammography in one year. BI-RADS Category 1: Negative Reviewed, dictated and finalized at location B.
== END 2024-01-21 09:58 | disposition home or self-care (01) ==
LOC: ANHIMG 10:01
PROVIDERS: PCP Internal Medicine; Visit Provider Obstetrics & Gynecology Gynecology
DX: Z12.31 Encounter for screening mammogram for malignant neoplasm of breast (principal)
CPT/HCPCS: 77063; 77067

== ENCOUNTER 2024-05-25 09:46 | Outpatient (CLI) | payer BC, SELFPAY ==
--- NOTE | ~2024-05-25 | US_ITS ---
EXAMINATION: US carotid duplex BI DATE: 05/25/2024 10:11 INDICATION: Carotid stenosis. TECHNIQUE: Grayscale, color Doppler, and pulsed Doppler images of the cervical carotid arteries were obtained. The degree of vessel stenosis is placed in one of the following categories: normal, <50%, 5 0-69%, >=70% but less than near-occlusion, near-occlusion, or total occlusion. Note that percent sten osis relative to normal distal artery lumen diameter is indirectly measured from velocity measurement s as described by Jose, et al. Radiology 2003; 229:340-346. Notes: Normal: Peak systolic velocity <125 centimeters/sec and no plaque <50%. Peak systolic velocity <125 ( EDV <40; ICA/CCA PSV ratio <2.0; used these factors only a tandem lesions or low cardiac output or co ntralateral disease) 50-69 %: PSV 125-230 (EDV 40-100; ratio 2-4) >= 70% but less than near occlusion: PSV greater than 230 (EDV > 100; ratio> 4.0) Near Occlusion: PSV that is variable; markedly narrowed lumen Occlusion: Absent flow on color/spectral Doppler and no lumen on bob scale. COMPARISON: Ultrasound dated 05/23/2023. FINDINGS: RIGHT: The right common carotid artery (CCA) peak systolic velocity (PSV) is 114 cm/s. The right internal ca rotid artery (ICA) PSV is 105 cm/s. The right ICA end-diastolic velocity (EDV) is 35 cm/s. The right ICA/CCA PSV ratio is 1.2. The external carotid artery (ECA) PSV is 144 cm/s. There is antegrade flow in the right vertebral artery. LEFT: The left CCA PSV is 98 cm/s. The left ICA PSV is 107 cm/s. The left ICA EDV is 26 cm/s. The left ICA/ CCA PSV ratio is 1.2. The ECA PSV is 144 cm/s. There is antegrade flow in the left vertebral artery. IMPRESSION: 1. Less than 50% stenosis in the right internal carotid artery by sonographic criteria. 2. Less than 50% stenosis in the left internal carotid artery by sonographic criteria. Reviewed, dictated and finalized at location B. IMPRESSION: 1. Less than 50% stenosis in the right internal carotid artery by sonographic c riteria. 2. Less than 50% stenosis in the left internal carotid artery by sonographic cr emanuelia.
== END 2024-05-25 09:47 | disposition home or self-care (01) ==
LOC: MICIMG 09:47
PROVIDERS: PCP Internal Medicine
DX: I65.23 Occlusion and stenosis of bilateral carotid arteries (principal)
CPT/HCPCS: 93880

== ENCOUNTER 2025-01-21 14:09 | Outpatient (CLI) | payer BC, SELFPAY ==
--- NOTE | ~2025-01-21 | MM_ITS ---
EXAMINATION: MM screening kiko BI w therese HISTORY: Screening TECHNIQUE: Craniocaudal and mediolateral oblique 3-D tomosynthesis images were obtained and synthetic 2-D images were generated. CAD analysis was submitted and interpreted. COMPARISON: Comparison to multiple prior studies sequentially, with oldest reviewed study dated 04/09. BREAST PARENCHYMAL COMPOSITION: Not dense: There are scattered areas of fibroglandular density. FINDINGS: There is no evidence of suspicious mass, calcification, or architectural distortion to sugg est malignancy in either breast. There has been no suspicious interval change. IMPRESSION: 1. No mammographic evidence of malignancy. 2. Recommend routine screening mammography in one year. BI-RADS Category 1: Negative Reviewed, dictated and finalized at location A.
--- OUTSIDE RECORDS SUMMARY | 2025-01-22 14:18 | XMS_ITS | Continuity of Care Document ---
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 [address] , [address], [place], [address], [place]. tel:[phone] Family History Family Member Type Diagnosis Age At Onset No Information Payers Payer name Insurance type Covered alliance party ID Authoriza tion(s) No Information Social History Type Description Quantity Date Captured Comments Sex Female Smoking Status No Information Chief Complaint And Reason For Visit No Information Reason For Referral Reason For Referral No Information History Of Present Illness Encounter Date Complaint History Of Prese nt Illness No Information Functional Status Date Functional Assessmen t No Information Instructions Date Instruction Additional Infor mation No Information Assessments Type Assessment Date No Information Patient Care Teams Name Effective Dates (start - stop) Status Members No Information
--- OUTSIDE RECORDS SUMMARY | 2025-01-22 14:18 | XMS_ITS | Clinical Summary ---
Author Organization [facility] Address [address] [place] [address] Care Team Providers Care Daily Sales Audit Clerk Name Role Phone Alivia Serrano MD Primary Care Provider + Allergies Active Allergy Reactions Criticality Noted Date Comments Cefaclor Anaphylaxis High 04/05/2024 Penicillins Hives 04/05/2024 Vancomycin Other (see comment) 04/05/2024 Medications MIMVEY 1-0.5 MG Tab Take 1 tablet by mouth daily. 4 Active hydroxychloroqui ne (PLAQUENIL) 200 MG tablet Take 1 tablet (200 mg total) by mouth 2 (two) times daily. 4 Active aspirin 81 MG chewable tablet Chew 1 tablet (81 mg total) by mouth every other day. Active esomeprazole (NEXIUM) 40 MG capsule Take 1 capsule (40 mg total) by mouth every morning before breakfast. Active Calcium Carb-Cholecalcif jj (CALTRATE 600+D3 OR) Take 1 tablet by mouth 2 (two) times a day. Active multi vitamin/minerals (THERA-M ENHANCED) tablet Take 1 tablet by mouth daily. Active docusate sodium (COLACE) 50 MG capsule Take 1 capsule (50 mg total) by mouth 3 (three) times daily as needed for Constipation. Active EMGALITY 120 MG/ML Solution Auto-injectorInd ications:Chronic migraine with aura without status migrainosus, not intractable Inject 120 mg as directed every 30 (thirty) days. 3 mL 3 4 Active FLUoxetine (PROZAC) 10 MG capsuleIndicatio ns:Recurrent major depressive disorder, in full remission Take 10 mg po daily with 20 mg combined daily to total 30 mg 90 capsule 3 4 Active albuterol sulfate HFA 108 (90 Base) MCG/ACT inhalerIndicatio ns:Other emphysema (CMS/HCC HHS/HCC) Inhale 2 puffs into the lungs every 6 (six) hours as needed. 18 g 3 4 Active montelukast (SINGULAIR) 10 MG tabletIndication s:Other emphysema (CMS/HCC HHS/HCC) Take 1 tablet (10 mg total) by mouth daily. 90 tablet 3 4 04/23/20 25 Active FLUoxetine (PROZAC) 20 MG capsuleIndicatio ns:Recurrent major depressive disorder, in full remission Take 20 mg daily with 10 mg daily to total 30 mg daily. 90 capsule 3 4 Active nortriptyline (PAMELOR) 50 MG capsuleIndicatio ns:Chronic migraine with aura without status migrainosus, not intractable Take 1 capsule (50 mg total) by mouth daily. 90 capsule 3 4 04/23/20 25 Active rizatriptan (MAXALT) 10 MG tabletIndication s:Chronic migraine with aura without status migrainosus, not intractable Take 1 tablet (10 mg total) by mouth as needed for Migraine (prn). May repeat in 2 hours if needed 30 tablet 4 04/23/20 25 Active topiramate (TOPAMAX) 100 MG tabletIndication s:Chronic migraine with aura without status migrainosus, not intractable Take 1 tablet (100 mg total) by mouth daily. 90 tablet 3 4 04/23/20 25 Active sulfamethoxazole -trimethoprim (BACTRIM DS) 800-160 MG tabletIndication s:Left breast abscess Take 1 tablet by mouth 2 (two) times daily for 10 days. 20 tablet 5 01/28/20 25 Active Active Problems Problem Noted Date Diagnosed Date Other emphysema (CMS/HCC HHS/HCC) 04/05/2024 Overview (04/05/2024): Uses albuterol mostly with illness. Also has singulair which is probably helping. Assessment & Plan (04/05/2024 12:35 PM CDT): Controlled. Continue albuterol and Singulair. Chronic migraine with aura 04/05/2024 Overview (04/05/2024): Takes Emgality which works very well. Has been taking it for 3-4 years. Also has nortriptyline, maxalt, topiramate. This regimen is working very well. Saw neurology at [facility]. Assessment & Plan (04/05/2024 12:37 PM CDT): Well-controlled on this regimen. Continue Emgality, nortriptyline, Maxalt, topiramate. BMP ordered. GERD (gastroesophageal reflux disease) Overview (04/05/2024): Takes nexium and if she doesn't take it symptoms return in 2 days. Assessment & Plan (04/05/2024 12:35 PM CDT): Benefits outweigh use of long-term use. Continue Nexium. Recurrent major depressive disorder, in full rem ission 04/05/2024 Overview (04/05/2024): In remission. Has been taking fluoxetine for years. Total dose 30 mg daily. Assessment & Plan (04/05/2024 12:35 PM CDT): Control. Patient hesitant to make any adjustments. Continue fluoxetine 30 mg daily. Bilateral carotid artery stenosis 04/05/2024 Overview (05/27/2024): 50% stenosed. Previously had annual ultrasound. USN in 05/2024 shows Less than 50% stenosis which is unlikely to need additional imaging. Assessment & Plan (04/05/2024 12:35 PM CDT): Will order repeat ultrasound for bilateral stenosis. Neck pain 01/16/2024 Overview (04/05/2024): Last Assessment & Plan: Since last visit, has noted increased neck discomfort. Completed physical therapy for this many years prior. Previously went to pain management and received PAUL without significant benefit. Rediscussed obtaining updated neck x-ray and sending back to physical therapy, which was amenable to. Pain of right hip 02/20/2023 Overview (04/05/2024): Last Assessment & Plan: No pain elicited with internal/external right hip range of motion. Will obtain baseline image and send to physical therapy. Undifferentiated inflammatory arthritis 06/26/20 17 Overview (04/05/2024): Takes plaquenil. Sees [facility], Nehemias Hitchcock. Assessment & Plan (04/05/2024 12:36 PM CDT): Managed by rheumatology. Stable. Abnormal cervical Papanicolaou smear 12/31/2011 Overview (04/05/2024): Prior LEEP procedure. Sees Dr. Paulson, independent OBGyn. She has annual Pap smears. Assessment & Plan (04/05/2024 12:36 PM CDT): Will acquire the record. Encounters Date Type Department Care Team Description 01/19/2025 Telephone [facility] [address] [place] [address] Joanie Tariq NP Follow Up Call 01/17/2025 2:00 PM CDT Office Visit [facility] [address] [place] [address] Joanie Tariq NP Abscess (Patient presents with c/o abscess under left breast, painful if pushed on, had some drainage but has stopped x 2 weeks) 01/17/2025 Travel from Last 3 Months Immunizations Immunization Administration Dates Next Due Influenza (Generic) 07/15/2019,07/13/2013 Influenza Adult (Generic) 06/24/2023 Shingrix 09/19/2020,04/15/2020 Tdap (Generic) 11/05/2020 Family History Medical History Relation Comments Aortic dissection Brother bicuspid valve Prostate Cancer Brother No Known Problems Child 1 No Known Problems Child 2 Heart Disease Father COPD Mother Cancer Sister bile duct Relation Status Comments Brother Child 1 Alive Child 2 Alive Father Mother Sister Social History Tobacco Use Types Packs/Day Years Used Date Smoking Tobacco: Former Cigarettes Smokeless Tobacco: Never Tobacco Cessation:Counseling Given: No Alcohol Use Standard Drinks/Week Comments Yes 0 (1 standard drink = 0.6 oz pur e alcohol) social PHQ-2 Answer Date Recorded Patient Health Questionnaire-2 Score 0 01/17/2025 Comments No Sex and Gender Information Value Date Recorded Sex Assigned at Female 03/16/2024 8:00 AM CDT Legal Sex Female 4:23 PM CDT Gender Identity Female 03/16/2024 8:00 AM CDT Sexual Orientation Not on file Last Filed Vital Signs Vital Sign Reading Time Taken Comments Blood Pressure 102/70 01/17/2025 1:57 PM CDT Pulse 104 01/17/2025 1:57 PM CDT Temperature 36.6 C (97.9 F) 01/17/2025 1:57 PM CDT Respiratory Rate 18 01/17/2025 1:57 PM CDT Oxygen Saturation 97% 01/17/2025 1:57 PM CDT Inhaled Oxygen Concentration - - Weight 79.8 kg (176 lb) 01/17/2025 1:57 PM CDT Height 154.9 cm (5' 1 ) 01/17/2025 1:57 PM CDT Body Mass Index 33.25 01/17/2025 1:57 PM CDT Plan of Treatment Health Maintenance Due Date Last Done Comments Hepatitis C 1981 Pneumococcal Vaccine: 50+ Years (1 of 2 - PCV) 1982 Cervical Cancer Screening Pap with HPV Testing (Age 30 to 64) Every 5 Years 1993 RSV Immunization or 60+ Years (1 - Risk 60-74 years 1-dose series) 2023 Annual Physical 04/05/2025 04/05/2024 Mammogram Screening 01/20/2026 01/21/2024, 01/21/2024, 09/26/2022, Additional history exists Cervical Cancer Screening Pap Smear (Age 30 to 64) Every 3 Years 04/10/2026 04/10/2023, 02/13/2023, 11/29/2021 Cervical Cancer Screening with HPV 04/10/2026 DTaP, Tdap and Td Vaccines (2 - Td or Tdap) 11/05/2030 11/05/2020 Colorectal Cancer Screening Colonoscopy (10 Years) 09/25/2033 09/25/2023 Zoster Vaccines Completed 09/19/2020, 04/15/2020 COVID-19 Vaccine Completed 06/10/2024, 11/2022, 07/15/2022, Additional history exists PHQ-2 (Physician [place]) Completed 01/17/2025 Meningococcal B Vaccine Aged Out No l onger eligible based on patient's age to complete this topic Meningococcal Vaccine Aged Out No pia jose eligible based on patient's age to complete this topic RSV Immunizations Under 20 Months Aged Out No longer eligible based on patient's age to complete this topic Procedures Procedure Name Priority Date/Time Associated Diagnosis Comments MAMMOGRAM GENERIC (SCAN ORDER) 01/21/2024 COLONOSCOPY GENERIC (SCAN ORDER) 09/25/2023 OUTSIDE CYTOPATH CERV/VAG IN TERPRET (PAP) (SCAN ORDER) 04/10/2023 from Last 3 Months or Most Recently Relevant to Health Maintenance Results * MAMMOGRAM GENERIC (SCAN ORDER) (01/21/2024) Anatomical Region Laterality Modality Other 01/21/2024 [facility] Scanned SCANNING Final Resu lt * COLONOSCOPY GENERIC (SCAN ORDER) (09/25/2023) 09/25/2023 [facility] Scanned SCANNING Final Resu lt * PAP SMEAR (SCAN ORDER) (04/10/2023) 04/10/2023 [facility] Scanned SCANNING Final Resu lt from Last 3 Months or Most Recently Relevant to Health Maintenance Insurance [facility] Care Teams Daily Sales Audit Clerk Relationship Specialty Start Date End Date Alivia Serrano MD [address] [place] [id number] PCP - General FAMILY PRACTICE 04/05/24
--- OUTSIDE RECORDS SUMMARY | 2025-01-22 14:18 | XMS_ITS | Encounter Summary ---
Author Organization [facility] Address [address] [place] [address] Care Team Providers Care Pet Sitting Name Role Phone Alivia Serrano MD Primary Care Provider + Encounter Details Date Type Department Care Team (Late st Contact Info) Description 06/24/2024 Euroceptt Message Enc [facility] - [place] [address] [place] [phone] Alivia Serrano MD [address] [place] [phone] Colonoscopy results Social History Tobacco Use Types Packs/Day Years Used Date Smoking Tobacco: Former Cigarettes Smokeless Tobacco: Never Alcohol Use Standard Drinks/Week Comments Yes 0 (1 standard drink = 0.6 oz pur e alcohol) social PHQ-2 Answer Date Recorded Patient Health Questionnaire-2 Score 0 04/05/2024 Comments Unknown Sex and Gender Information Value Date Recorded Sex Assigned at Female 03/16/2024 8:00 AM CDT Legal Sex Female 4:23 PM CDT Gender Identity Female 03/16/2024 8:00 AM CDT Sexual Orientation Not on file documented as of this encounter Plan of Treatment Not on file documented as of this encounter Visit Diagnoses Not on filedocumented in this encounter Care Teams Pet Sitting Relationship Specialty Start Date End Date Alivia Serrano MD [address] [place] [id number] PCP - General FAMILY PRACTICE 04/05/24 documented as of this encounter
--- OUTSIDE RECORDS SUMMARY | 2025-01-22 14:18 | XMS_ITS | Encounter Summary ---
Author Organization [facility] Address [address] [place] [address] Phone Care Team Providers Care Quality Control Tech Name Role Phone Ryland Agarwal MD Unavailable [phone] Antonio Grimaldo MD Unavailable [phone] Miscellaneous, Not In File Primary Care Provider Unavailable Encounter Details Date Type Department Care Team (Late st Contact Info) Description 01/18/2025 Orders Only [facility] [address] [place] [phone] Nehemias Hitchcock PA [address] [place] [address] Undifferentiated inflammatory arthritis (Primary Dx); custodial use of drug Social History Tobacco Use Types Packs/Day Years Used Date Smoking Tobacco: Never Alcohol Use Standard Drinks/Week Comments Yes 1 (1 standard drink = 0.6 oz pur e alcohol) Comments Unknown Sex and Gender Information Value Date Recorded Sex Assigned at Not on file Legal Sex 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 Gender Identity Not on file Sexual Orientation Not on file 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, 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 Not on file Not on file Not on file documented as of this encounter Plan of Treatment Scheduled Orders Name Type Priority Associated Diagnoses Orde r Schedule Erythrocyte sedimentation rate Lab Routine Undifferentiated inflammatory arthritis (HCC) custodial use of drug Expected: 01/18/2025, Expires: 01/18/2026 CRP (acute phase) Lab Routine Undifferentiated inflammatory arthritis (HCC) custodial use of drug Expected: 01/18/2025, Expires: 01/18/2026 Comprehensive metabolic panel Lab Routine Undifferentiated inflammatory arthritis (HCC) exterminator termite use of drug Expected: 01/18/2025, Expires: 01/18/2026 CBC with auto differential Lab Routine Undifferentiated inflammatory arthritis (HCC) custodial use of drug Expected: 01/18/2025, Expires: 01/18/2026 documented as of this encounter Visit Diagnoses Diagnosis Undifferentiated inflammatory arthritis- Primary Unspecified inflammatory polyarthropathy custodial use of drug documented in this encounter Care Teams Quality Control Tech Relationship Specialty Start Date End Date Miscellaneous, Not In File PCP - General 07/15/24 Ryland Agarwal MD [address] [place] [address] Rheumatology 09/01/17 Antonio Grimaldo MD [address] [place] [address] Referring Physician Diagnostic Radiology 02/21/22 documented as of this encounter
--- OUTSIDE RECORDS SUMMARY | 2025-01-22 14:18 | XMS_ITS | Clinical Summary ---
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 Gender Identity Not on file Sexual Orientation Not on file Plan of Treatment Health Maintenance Due Date Last Done Comments DTAP/TDAP/TD VACCINES (1 - Tdap) 1982 HPV/Cotest (21-29) 1984 HPV/Cotest (30-65) 1993 FIT-DNA Q 3 years 2008 FIT/FOBT Q 1 year 2008 Flex Sig/CT Colonography Q 5 years 2008 ZOSTER VACCINE (1 of 2) 2013 BREAST CANCER SCREENING 05/25/2021 05/25/20 20, 05/25/2020, 03/02/2019, Additional history exists CERVICAL CANCER SCREENING 11/24/2023 PAP SMEAR 11/24/2023 11/23/2020, 10/24, 11/12/2018, Additional history exists INFLUENZA VACCINE (#1) 2024 COLORECTAL SCREENING 07/09/2028 07/09/2018 Colorectal Cancer Screening 07/09/2028 RSV VACCINE (60+ or ) (1 - 1-dose 75+ series) 2038 Care Teams Client Operations Manager Relationship Specialty Start Date End Date Chucho Bentley DO [address] [place] [address] PCP - General Internal Medicine 04/07/19
--- OUTSIDE RECORDS SUMMARY | 2025-01-22 14:18 | XMS_ITS | Clinical Summary ---
Author Organization [facility] [address] Address [address] [place] [address] Phone Care Team Providers Care Jewel Gauger Name Role Phone Ryland Agarwal MD Unavailable [phone] Antonio Grimaldo MD Unavailable [phone] Miscellaneous, Not In File Primary Care Provider Unavailable Allergies Active Allergy Reactions Criticality Noted Date Comments Cefaclor Penicillins Vancomycin Medications rizatriptan (MAXALT) 10 mg tablet take 1 tablet by oral route once, may repeat at 2 hour intervals; do not exceed 30 mg in 24 hours 0 0 6 Active nortriptyline (PAMELOR) 50 mg capsule take 2 capsule by oral route 2 times every day 0 0 6 Active Additional Information Patient taking differently:50 mgoral Nightly, Reported on 04/25/2020 calcium carbonate-vitam in D3 (CALTRATE 600 + D) 600 mg (1,500 mg)-800 unit tablet,chewable qd 0 0 6 Active Additional Information Patient taking differently: 1,000 mg, Reported on 08/22/2022 multivitamin capsule qd 0 0 6 Active topiramate (TOPAMAX) 100 mg tablet take 1 tablet by oral route 2 times every day 0 0 7 Active polyethylene glycol (MIRALAX) 17 gram/dose powder take (17G) by oral route every day mixed with 8 oz. water, juice, soda, coffee or tea 0 0 7 Active PROAIR HFA 90 mcg/actuation inhaler INHALE 2 PUFFS BY MOUTH EVERY 4 - 6 HOURS NEEDED 4 7 Active ergocalciferol (VITAMIN D) 50,000 unit capsule TAKE 1 CAPSULE BY MOUTH ONCE A WEEK 4 7 Active citalopram (CeleXA) 10 mg tablet Take 10 mg by mouth daily Active FLUoxetine (PROzac) 20 mg tablet Take 20 mg by mouth daily Active montelukast (SINGULAIR) 10 mg tablet Take 10 mg by mouth nightly Active RABEprazole DR (ACIPHEX) 20 mg EC tablet Take 20 mg by mouth daily Active galcanezumab-gn lm (Emgality Pen) 120 mg/mL pen injector Inject 120 mg under the skin every 30 (thirty) days 1 Syringe 11 0 Active estradiol-noret hindrone (ACTIVELLA) 1-0.5 mg per tablet Take 1 tablet by mouth daily Active omega 8-hxx-ccf-fish oil 1,000 mg (120 mg-180 mg) capsule Active aspirin 81 mg chewable tablet Take 1 tablet (81 mg total) by mouth daily Active hydroxychloroqu ine (PLAQUENIL) 200 mg tablet TAKE 1 TABLET BY MOUTH 2 TIMES DAILY 180 tablet 5 Active Active Problems Problem Noted Date Diagnosed Date Rash 07/16/2024 Assessment & Plan (10/15/2024 10:54 AM CAREER DEVELOPMENT ASSOCIATE): Scaly patch over the left inferior posterior medial malleolus Differential diagnosis includes: Fungal infection (e.g., tinea) Eczematous dermatitis Plan Has tried clobetasol cream without resolution of rash. Recommended clotrimazole cream applied twice daily to the affected area for 2-4 weeks. If rash persists, recommended evaluation with Dermatology. Assessment & Plan (07/16/2024 10:48 AM CDT): Scaly patch over the left inferior posterior medial malleolus Differential diagnosis includes: Fungal infection (e.g., tinea) Eczematous dermatitis Plan First-Line Treatment: Start with clotrimazole cream (antifungal), applied twice daily to the affected area for 2-4 weeks. Second-Line Treatment (if no improvement with clotrimazole): Trial of 1% hydrocortisone cream (low-potency corticosteroid), applied twice daily to address potential eczematous inflammation. Further Evaluation: If the rash persists despite the above treatments, refer to Dermatology for further evaluation. Dermatology evaluation may include skin scraping, biopsy, or alternative treatment options. Neck pain 01/16/2024 Assessment & Plan (01/16/2024 3:18 PM CDT): Since last visit, has noted increased neck discomfort. Completed physical therapy for this many years prior. Previously went to pain management and received PAUL without significant benefit. Rediscussed obtaining updated neck x-ray and sending back to physical therapy, which was amenable to. Pain of right hip 02/20/2023 Assessment & Plan (02/20/2023 2:33 PM CDT): No pain elicited with internal/external right hip range of motion. Will obtain baseline image and send to physical therapy. Pain of left lower extremity 02/21/2022 Assessment & Plan (08/22/2022 2:28 PM CAREER DEVELOPMENT ASSOCIATE): Primary complaint at last visit was intermittent pain and questionable swelling localized over the posterior infero-lateral aspect of the L knee. Difficult to assess the cause for her pain, although her pain was fairly severe at times. We did refer to Dr. Antonio Grimaldo for an ultrasound of the area of concern to evaluate further at her last visit. She did not proceed with this, as symptoms were much improved. Could reconsider if these worsened again. Assessment & Plan (02/21/2022 10:10 PM CDT): Primary complaint today is intermittent pain and questionable swelling localized over the posterior infero-lateral aspect of the L knee. Difficult to assess the cause for her pain, although her pain can be fairly severe at times. Will refer to Dr. Antonio Grimaldo for an ultrasound of the area of concern to evaluate further. Bursitis of right hip 08/27/2018 Assessment & Plan (07/01/2019 10:12 AM CDT): Symptoms much improved with exercise sheet given. Assessment & Plan (11/26/2018 5:11 PM CAREER DEVELOPMENT ASSOCIATE): Symptoms resolved at this time. Assessment & Plan (08/27/2018 11:36 AM CAREER DEVELOPMENT ASSOCIATE): Pain and tenderness localized over the right greater trochanter. Suspicious for right hip bursitis. Patient given exercises to see if this improves symptoms. If no improvement, will consider PT versus right hip bursa injection. 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 Findings greatest in the radial/scaphoid joint with a grade 1 effusion and grade 1 power doppler. Grade 1 power doppler activity also seen in the long view of the wrist. Grade 1 effusion seen in the 5th MCP joint. An enlarged median nerve was identified. The remainder of the exam is essentially unremarkable. US left foot/ankle (12/17/18): Mild effusions on examination which will have to be correlated clinically. Grade 1 effusion in the talonavicular joint and 2nd and 4th MTP joints. A mildly enlarged plantar fascia is seen. Assessment & Plan (07/01/2019 10:10 AM CDT): Moderate CDAI 13. Patient last seen 11/2018, as was lost to follow-up. Patient noted less benefit when switched to diclofenac medication, so has since resumed meloxicam. Continues to note some persistent joint discomfort with intermittent flares, primarily involving the bilateral hands/feet. Does appear to possess some mild synovitis in the right 2nd and 3rd MCP with no other obvious synovitis present. Most recent left foot/ankle ultrasound 11/2018 displayed only mild effusions. Given the ultrasound findings, overall does appear fairly well controlled on current treatment regimen. As she continues to have some persistent joint discomfort in the hands, discussed possible repeat right hand ultrasound to assess for worsened inflammation that would warrant further treatment. With that said, patient feels that she is doing well enough at this time would like to just continue with current treatment regimen. Would like to reconsider right hand ultrasound in the next 3 months. Will continue Plaquenil 200 mg b.i.d., meloxicam 15 mg q.d.. Routine labs today. Follow-up 3 months. Sooner if needed. Assessment & Plan (11/26/2018 5:12 PM CAREER DEVELOPMENT ASSOCIATE): Patient continues to note intermittent joint flares, which occur approximately 2 times per month and last for 5-6 days at a time. Patient did not obtain hand ultrasound, which was prescribed at the last visit, as notes that she was unable to schedule due to being too busy with work. Denies significant benefit since being the Plaquenil medication. Does appear to have some synovitis across few joints in the bilateral hands. Notes that her joint symptoms are most bothersome in the feet. For this reason, will obtain left foot /ankle ultrasound for further evaluation. Depending on findings, would consider addition of methotrexate or sulfasalazine medication, which was discussed with patient today. Has noted benefit with the meloxicam medication, although will trial of diclofenac 75 mg b.i.d. To see if this can offer more benefit. Discussed side effects of the medication, including but not limited to GI upset, kidney, and ulcers. Continue hcq 200 mg bid. Routine labs today. Follow up 6 weeks. Sooner if needed. Assessment & Plan (08/27/2018 11:35 AM CAREER DEVELOPMENT ASSOCIATE): Overall patient notes that she has been doing very well today. With that said, states that she has been in a flare for the past several days until today's visit. During her flare, noted pain and stiffness primarily involving the feet, external knees, right external hip, as well as the bilateral hands. A.m. Stiffness for approximately 40 min. Do not see any obvious synovitis on exam today of the hands. As patient's feet are her biggest issue, will obtain left foot / ankle ultrasound prior to next visit. Will have patient call when she does develop a flare and have her schedule her ultrasound appointment at that time. Continue current treatment regimen of Plaquenil 200 mg b.i.d., as well as Meloxicam 15 mg q.d.. Follow-up 2 months. Sooner if needed. Routine labs today. Assessment & Plan (10/09/2017 11:16 AM CAREER DEVELOPMENT ASSOCIATE): Doing well overall. Has minimal complaints today and no recent flare ups. Does have occasional pain in feet, toes worse with activity. Occasional pain in hands, worse in right 5th mcp joint. Recent right hand/wrist US revealed only mild inflammatory changes. Feels well today with no current pain and no synovitis on exam. Cont HCQ 200 mg bid. Cont routine eye exams while on HCQ. Labs as below. F/u 6 months. Undifferentiated inflammatory arthritis 06/26/20 Overview (03/21/2023): intermittent pain in MCP joints, worse in right 5th MCP joint and feet, toes On HCQ Uses meloxicam 15 mg daily which helps, will stop mobic and trial diclofenac 75 mg BID to see if can offer benefit US right hand/wrist (09/04/17): Mild synovitis with effusions, synovial thickening and power doppler activity on examination. Findings greatest in the radial/scaphoid joint with a grade 1 effusion and grade 1 power doppler. Grade 1 power doppler activity also seen in the long view of the wrist. Grade 1 effusion seen in the 5th MCP joint. An enlarged median nerve was identified. The remainder of the exam is essentially unremarkable. US left foot/ankle (12/17/18): Mild effusions on examination which will have to be correlated clinically. Grade 1 effusion in the talonavicular joint and 2nd and 4th MTP joints. A mildly enlarged plantar fascia is seen. US right hand/wrist (03/20/23): Grade 1 power doppler in the wrist. Mild synovial thickening in the 2nd MCP and 2nd and 3rd PIP joints. An enlarged median nerve at 0.15 cm2 is identified. Assessment & Plan (10/15/2024 10:53 AM CAREER DEVELOPMENT ASSOCIATE): CDAI 12. Mimi notes episodic pain that is most notable in the joints of the feet with mild residual chronic discomfort across few joints of the hands. During the flares, symptoms are most severe in the morning, although do persist throughout the day. Minimal complaints at today's visit. Discussed resuming treatment with meloxicam 15 mg daily to be used p.r.n. during flares. At this time, she does feel that symptoms are managed with OTC NSAIDs and Tylenol p.r.n.. Otherwise, will have her obtain a foot ultrasound at the time of the flare to assess for inflammation. Depending on findings, would consider additional treatment with methotrexate, which was discussed today. At present, will continue Plaquenil 200 mg b.i.d.. Continue routine eye exams. Routine labs today. Follow-up 3 months. Sooner if needed. Assessment & Plan (07/16/2024 10:46 AM CDT): CDAI 18. Mimi has recently noted increased pain in the bilateral hands and feet with symptoms that are most notable in the morning and do improve with use. A.m. stiffness for 40-45 minutes. Scattered tender joints with mild swelling across few joints, as above. Given inflammatory joint symptoms and physical exam findings, we did discuss additional treatment with methotrexate 12.5 mg p.o. weekly with FA 1 mg daily. At this time, she defers additional treatment options. She suspects that recent exacerbation of joint symptoms was related to the vaccines in the symptoms are improving. Could reconsider this if symptoms persist or worsen. Otherwise, will continue Plaquenil 200 mg b.i.d.. Continue routine eye exams. Continue Advil and Tylenol arthritis p.r.n.. Routine labs today. Follow-up 3 months. Sooner if needed. Assessment & Plan (04/16/2024 11:19 AM CDT): CDAI 4. Overall, joints have done fairly well since last visit without significant peripheral joint pain and or prolonged a.m. stiffness. Has intermittent occasional discomfort in the hands and feet, which is mild and manageable. Denies prolonged a.m. stiffness at present. Minimal swelling and tenderness on exam. Does appear well managed. Will continue Plaquenil 200 mg b.i.d.. Continue routine eye exams. Continue Advil and Tylenol Arthritis p.r.n.. Continue Voltaren gel. Routine labs today. Overdue for labs, which was discussed today. Follow-up 3 months. Sooner if needed. Assessment & Plan (01/16/2024 3:17 PM CDT): CDAI 9. Overall, joints have done fairly well since last visit. Does experience intermittent discomfort in the hands/feet requiring her to take Advil infrequently to manage symptoms. Peripheral joints typically not bothersome enough to warrant NSAIDs. Has minimal swelling and tenderness on exam today. Overall, does appear well managed. Discussed potential repeat hand ultrasound, if symptoms progress, which she defers at this time, as symptoms are manageable. Continue Plaquenil 200 mg b.i.d.. Continue routine eye exams. Continue Advil and Tylenol Arthritis p.r.n.. Routine labs today. Follow-up 3 months. Sooner if needed Assessment & Plan (10/17/2023 2:32 PM CAREER DEVELOPMENT ASSOCIATE): CDAI 8. Overall, joints have done fairly well since last visit. Has minimal discomfort in the bilateral hands (1/2 mcp joints) and hips. No other significant joint complaints. Minimal synovitis on exam. Remains well managed on current treatment regimen. Will continue Plaquenil 200 mg b.i.d.. Up-to-date on eye exams. Have discussed Tylenol Arthritis and OTC Voltaren gel. Denies significant benefit with Tylenol Arthritis. Will continue to avoid NSAIDs, including meloxicam. Routine labs today. Follow-up 3 months. Sooner if needed. Assessment & Plan (06/20/2023 11:27 AM CDT): CDAI 7. After last visit, Mimi did obtain a repeat hand ultrasound, as above, without significant evidence to suggest uncontrolled inflammation. Overall, joints have done fairly well since last visit with minimal complaints. Occasional discomfort over the right anterior wrist, as well as the plantar aspect of the feet with standing/walking extensively. Denies significant peripheral joint pain and or prolonged a.m. stiffness at present. Minimal synovitis on exam. Overall, does fairly well managed will continue Plaquenil 200 mg b.i.d.. Up-to-date on eye exams. Have previously discussed Tylenol Arthritis and OTC Voltaren gel. Given that her creatinine normalized, we did discuss restarting meloxicam at a lower dose of 7.5 mg daily at last visit, which she deferred. Could reconsider this, if symptoms worsened. Routine labs today. Follow-up 3 months. Sooner if needed. Assessment & Plan (02/20/2023 2:32 PM CDT): CDAI 15. Since last visit, has remained on hydroxychloroquine. Remains off meloxicam due to previous mildly elevated creatinine. Has noted episodic discomfort in the right hip/groin/posterior hip without pain in the hip at present. Has episodic swelling/discomfort in the bilateral hands, as well. A.m. stiffness for 2-3 hours. Scattered joint tenderness with questionable swelling in the right 2nd MCP/PIP, as above. Given that creatinine has normalized, discussed restarting meloxicam at a lower dose of 7.5 mg daily. She defers at this time. Discussed Tylenol Arthritis and OTC Voltaren gel. Will continue Plaquenil 200 mg b.i.d.. Will obtain a right hand/wrist ultrasound to assess for inflammation. Routine labs today. Continue routine eye exams. Follow-up 2 months. Sooner if needed. Assessment & Plan (08/22/2022 2:27 PM CAREER DEVELOPMENT ASSOCIATE): CDAI 8. Has remained on hydroxychloroquine since last visit. Stop meloxicam due to mild renal insufficiency. Overall, joints have done fairly well with minimal complaints. Low disease activity per CDAI. Will continue Plaquenil 200 mg b.i.d.. Routine labs today. Follow-up 6 months. Sooner if needed. Assessment & Plan (02/21/2022 10:06 PM CDT): Mimi is a pleasant 56 yoF last seen at our office in 2019. Has remained on hcq and mobic since that time with refills per pcp. Peripheral joints have remained fairly well controlled on treatment regimen. Was off medications for one month with worsened pain in the ursula hands (PIP>MCP joints). Previous diagnosis of palindromic rheumatism, although suspect most likely snra at this time given symptoms worsening immediately upon stopping medications. Will obtain updated labs. Due for eye exam, which was discussed today. Otherwise, will continue hcq 200 bid, mobic 15 mg daily. Fu 6 months. Sooner if needed. Seen with Dr. Agarwal. Assessment & Plan (06/26/2017 11:23 AM CDT): Suspect palindromic rheumatism. Will get u/s as she complains of having flares monthly. Will see if HcQ is enough for her. Will check routine labs today. USP use of drug 02/27/2017 Assessment & Plan (10/15/2024 10:54 AM CAREER DEVELOPMENT ASSOCIATE): Routine labs today. Assessment & Plan (07/16/2024 10:46 AM CDT): Routine labs today. Assessment & Plan (04/16/2024 11:19 AM CDT): Routine labs today. Assessment & Plan (10/17/2023 2:32 PM CAREER DEVELOPMENT ASSOCIATE): Routine labs today. Assessment & Plan (06/20/2023 11:27 AM CDT): Routine labs today. Assessment & Plan (02/20/2023 2:32 PM CDT): Routine labs today. Due for eye exam. Assessment & Plan (08/22/2022 2:27 PM CAREER DEVELOPMENT ASSOCIATE): Routine labs today. Due for eye exam. Assessment & Plan (02/21/2022 10:07 PM CDT): Routine labs today. Due for eye exam. Assessment & Plan (07/01/2019 10:12 AM CDT): Routine labs today. Continue routine eye exams. Tolerating medications well and denies any side effects. Assessment & Plan (11/26/2018 5:11 PM CAREER DEVELOPMENT ASSOCIATE): Routine labs today. Continue routine eye exams. Tolerating medications well and denies any side effects. Assessment & Plan (08/27/2018 11:36 AM CAREER DEVELOPMENT ASSOCIATE): Routine labs today. Continue routine eye exams. Tolerating medications well and denies any side effects. Assessment & Plan (06/26/2017 12:53 PM CDT): Will continue to monitor the patient with routine labs. Assessment & Plan (02/27/2017 2:39 PM CDT): Continue to monitor with routine labs. 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 Patient to continue HCQ. Has some swelling in her pips. Will repeat labs and continue to watch patient for now. Patient does not have any SE from this medication. S/P foot surgery, left 02/27/201708/27 Assessment & Plan (02/27/2017 2:39 PM CDT): Healing slowing from 1 MTP fusion. Encounters Date Type Department Care Team Description 01/18/2025 Orders Only [facility] [address] [place] [phone] Nehemias Hitchcock PA Undifferentiated inflammatory arthritis (Primary Dx); USP use of drug 01/17/2025 Telephone [facility] [address] [place] [phone] Jhonny Santillan from Last 3 Months Surgical History Surgery Date Site/Laterality Comments OTHER SURGICAL HISTORY plantar facia release SECTION CHOLECYSTECTOMY FOOT SURGERY SINUS SURGERY Medical History Medical History Date Comments Migraine GERD (gastroesophageal reflux disease) Depression Asthma Allergic rhinitis Arthritis Family History Medical History Relation Name Comments Prostate cancer Brother Heart disease Father Cancer Maternal Grandmother COPD Mother Cancer Paternal Grandfather Relation Name Status Comments Brother Father Maternal Grandmother Mother Paternal Grandfather Social History Tobacco Use Types Packs/Day Years Used Date Smoking Tobacco: Never Alcohol Use Standard Drinks/Week Comments Yes 1 (1 standard drink = 0.6 oz pur e alcohol) Comments Unknown Sex and Gender Information Value Date Recorded Sex Assigned at Not on file Legal Sex Female 12:57 PM CAREER DEVELOPMENT ASSOCIATE Gender Identity Not on file Sexual Orientation Not on file 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, 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 Not on file Not on file Not on file Obstetrics History Last Filed Vital Signs Vital Sign Reading Time Taken Comments Blood Pressure 126/74 10/15/2024 9:52 AM CAREER DEVELOPMENT ASSOCIATE Pulse 81 10/15/2024 9:52 AM CAREER DEVELOPMENT ASSOCIATE Temperature 36.3 C (97.3 F) 04/25/2020 8:21 AM CDT Respiratory Rate - - Oxygen Saturation 99% 10/15/2024 9:52 AM CAREER DEVELOPMENT ASSOCIATE Inhaled Oxygen Concentration - - Weight 78.5 kg (173 lb) 10/15/2024 9:52 AM CAREER DEVELOPMENT ASSOCIATE Height 154.9 cm (5' 1 ) 10/15/2024 9:52 AM CAREER DEVELOPMENT ASSOCIATE Body Mass Index 32.69 10/15/2024 9:52 AM CAREER DEVELOPMENT ASSOCIATE Plan of Treatment Health Maintenance Due Date Last Done Comments Breast Cancer Screening-Mammogram 1965 Cervical Cancer Screening 1963 Colon Cancer Screening-Colonoscopy 1965 Depression Screening 1963 Hepatitis C Screening 1963 Hepatitis B Screening 1981 Regular Well Visit/Exam 18-64 1981 Pneumococcal vaccine <65 (1 of 2 - PCV) 1982 Influenza Vaccine (Season Ended) 2025 06/24/2023, 07/15/2019, 07/13/2013 DTaP/Tdap/Td Vaccine (2 - Td or Tdap) 11/05/2030 Zoster Vaccine Completed 09/19/2020, 04/15/2020 Insurance [facility] ACCESS CHOICE [employer] [place] [facility] [place] Care Teams Jewel Gauger Relationship Specialty Start Date End Date Miscellaneous, Not In File PCP - General 07/15/24 Ryland Agarwal MD [address] [place] [address] Rheumatology 09/01/17 Antonio Grimaldo MD [address] [place] [address] Referring Physician Diagnostic Radiology 02/21/22
--- OUTSIDE RECORDS SUMMARY | 2025-01-22 14:18 | XMS_ITS | Referral Summary ---
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 01/17/2025 Telephone [facility] [address] [place] [phone] Jhonny Santillan from Last 3 Months Allergies Active Allergy Reactions Criticality Noted Date [...] 1 tablet by mouth daily Active omega 9-uhx-eld-fish oil 1,000 mg (120 mg-180 mg) capsule Active aspirin 81 mg chewable tablet Take 1 tablet (81 mg total) by mouth daily Active hydroxychloroqu ine (PLAQUENIL) 200 mg tablet TAKE 1 TABLET BY MOUTH 2 TIMES DAILY 180 tablet 5 Active Active Problems Problem Noted Date Diagnosed Date Rash 07/16/2024 Assessment & Plan (10/15/2024 10:54 AM MANAGER DIESEL): Scaly patch over the left inferior posterior [...] 02/21/2022 Assessment & Plan (08/22/2022 2:28 PM MANAGER DIESEL): Primary complaint at last visit was intermittent [...] given. Assessment & Plan (11/26/2018 5:11 PM MANAGER DIESEL): Symptoms resolved at this time. Assessment & Plan (08/27/2018 11:36 AM MANAGER DIESEL): Pain and tenderness localized over the right [...] needed. Assessment & Plan (11/26/2018 5:12 PM MANAGER DIESEL): Patient continues to note intermittent joint flares, [...] needed. Assessment & Plan (08/27/2018 11:35 AM MANAGER DIESEL): Overall patient notes that she has been [...] today. Assessment & Plan (10/09/2017 11:16 AM MANAGER DIESEL): Doing well overall. Has minimal complaints today [...] F/u 6 months. Undifferentiated inflammatory arthritis 06/26/20 17 Overview (03/21/2023): intermittent pain in MCP joints, [...] identified. Assessment & Plan (10/15/2024 10:53 AM MANAGER DIESEL): CDAI 12. Mimi notes episodic pain that [...] needed Assessment & Plan (10/17/2023 2:32 PM MANAGER DIESEL): CDAI 8. Overall, joints have done fairly [...] needed. Assessment & Plan (08/22/2022 2:27 PM MANAGER DIESEL): CDAI 8. Has remained on hydroxychloroquine since [...] for her. Will check routine labs today. bed bug exterminator use of drug 02/27/2017 Assessment & Plan (10/15/2024 10:54 AM MANAGER DIESEL): Routine labs today. Assessment & Plan (07/16/2024 10:46 AM CDT): Routine labs today. Assessment & Plan (04/16/2024 11:19 AM CDT): Routine labs today. Assessment & Plan (10/17/2023 2:32 PM MANAGER DIESEL): Routine labs today. Assessment & Plan (06/20/2023 11:27 AM CDT): Routine labs today. Assessment & Plan (02/20/2023 2:32 PM CDT): Routine labs today. Due for eye exam. Assessment & Plan (08/22/2022 2:27 PM MANAGER DIESEL): Routine labs today. Due for eye exam. Assessment & Plan (02/21/2022 10:07 PM CDT): Routine labs today. Due for eye exam. Assessment & Plan (07/01/2019 10:12 AM CDT): Routine labs today. Continue routine eye exams. Tolerating medications well and denies any side effects. Assessment & Plan (11/26/2018 5:11 PM MANAGER DIESEL): Routine labs today. Continue routine eye exams. Tolerating medications well and denies any side effects. Assessment & Plan (08/27/2018 11:36 AM MANAGER DIESEL): Routine labs today. Continue routine eye exams. [...] CDT): Healing slowing from 1 MTP fusion. 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 on file Not on file Not on file Last Filed Vital Signs Vital Sign Reading Time Taken Comments Blood Pressure 126/74 10/15/2024 9:52 AM MANAGER DIESEL Pulse 81 10/15/2024 9:52 AM MANAGER DIESEL Temperature 36.3 C (97.3 F) 04/25/2020 8:21 AM CDT Respiratory Rate - - Oxygen Saturation 99% 10/15/2024 9:52 AM MANAGER DIESEL Inhaled Oxygen Concentration - - Weight 78.5 kg (173 lb) 10/15/2024 9:52 AM MANAGER DIESEL Height 154.9 cm (5' 1 ) 10/15/2024 9:52 AM MANAGER DIESEL Body Mass Index 32.69 10/15/2024 9:52 AM MANAGER DIESEL Plan of Treatment Not on file Insurance [facility] [place] [employer] [facility] Care Teams Area Secretary Relationship Specialty Start Date End Date Miscellaneous, Not In File PCP - General 07/15/24 Ryland Agarwal MD [address] [place] [address] Rheumatology 09/01/17 Antonio Grimaldo MD [address] [place] [address] Referring Physician Diagnostic Radiology 02/21/22
--- OUTSIDE RECORDS SUMMARY | 2025-01-22 14:18 | XMS_ITS | Clinical Summary ---
Author Organization [facility] Address [address] [place] [address] Care Team Providers Care On Call Name Role Phone Chucho Bentley Primary Care Provider Source Comments [facility],non-owned Affiliates and Associated Physician Practices is amultiple site organization consisting of ambulatory clinics and hospital sitesin [place], [place], [place] and [place]. This disclosure is being madepursuant to the Care Everywhere program and may not contain all information available regarding this patient. Last updated 18.[facility] [place] Social History Tobacco Use Types Packs/Day Years Used Date Smoking Tobacco: Never Assessed Comments Unknown Sex and Gender Information Value Date Recorded Sex Assigned at Not on file Legal Sex Female 3:48 PM CDT Gender Identity Not on file Sexual Orientation Not on file Plan of Treatment Health Maintenance Due Date Last Done Comments COLOGUARD (AGES 45-75) - COL ON CA SCREENING 1963 COLON MONITORING 1963 COLONOSCOPY - COLON CA SCREENING 1963 CT COLONOGRAPHY - COLON CA SCREENING 1963 Colorectal Cancer Screening 1963 FIT - COLON CA SCREENING 1963 FLEX SIG - COLON CA SCREENING 1963 LIPID TESTING 1963 MAMMOGRAM 1963 PAP SMEAR 1963 HIV SCREENING 1978 HEPATITIS C SCREENING 03/26/1981 DTAP/TDAP/TD VACCINES (1 - Tdap) 1982 PNEUMOCOCCAL VACCINE 50+ (1 of 1 - PCV) 2013 ZOSTER VACCINE (1 of 2) 2013 COVID-19 VACCINE ( - 2023-2 5 season) 2024 DEPRESSION SCREENING 09/22/2024 INFLUENZA VACCINE (Season Ended) 2025 Respiratory Syncytial Virus (RSV) Vaccine Pt: or over 60 yrs (1 - 1-dose 75+ series) 2038 HEPATITIS B VACCINE Aged Out No longe r eligible based on patient's age to complete this topic HIB VACCINE Aged Out No longer eligi ble based on patient's age to complete this topic HPV VACCINE Aged Out No longer eligi ble based on patient's age to complete this topic MENINGOCOCCAL (Group B) VACC INE SHARED DECISION-MAKING Aged Out No longer eligibl e based on patient's age to complete this topic MENINGOCOCCAL GROUPS A/C/Y/W VACCINE Aged Out No longer eligible b ased on patient's age to complete this topic Insurance [facility] NO INSURANCE Member Subscriber Plan / Payer (Ef fective for All Dates) Name:Annika Garrison Member ID:Not on file Relation to Subscriber:Not on file Name:ANNIKA GARRISON Subscriber ID:Not on file Address: [address] [place] [address] Payer ID:Not on file Group ID:Not on file Type:Self Pay Address: [place], [place] Care Teams On Call Relationship Specialty Start Date End Date Chucho Bentley DO [address] [place] [address] PCP - General Internal Medicine 03/13/16
== END 2025-01-21 14:10 | disposition home or self-care (01) ==
LOC: ANHIMG 14:11
PROVIDERS: PCP Student in an Organized Health Care Education/Training Program; Visit Provider Obstetrics & Gynecology Gynecology
DX: Z12.31 Encounter for screening mammogram for malignant neoplasm of breast (principal)
CPT/HCPCS: 77063; 77067

== ENCOUNTER 2025-04-19 14:54 | Outpatient (CLI) | payer BC, SELFPAY ==
--- NOTE | ~2025-04-19 | DEXA_ITS ---
Bone Density Report Name: ANNIKA NDIAYE Age: 60 Sex: Female Ethnicity: White Date of : 1965 Indication: osteopenia; Referring Provider: LENA NELSON Study: Bone densitometry was performed. Exam Date: April 19, 2025 Accession number: [id number] Bone Density: Region BMD T-score Z-score Classification AP Spine(L1-L4) 0.862 -1.7 -0.1 Osteopenia Femoral Neck (Left) 0.732 -1.1 0.3 Osteopenia Total Hip (Left) 0.891 -0.4 0.6 Normal Femoral Neck (Right) 0.762 -0.8 0.6 Normal Total Hip (Right) 0.937 0.0 1.0 Normal Total Hip Mean 0.914 -0.2 0.8 Normal World Health Organization criteria for BMD impression classify patients as: Normal (T-score at or above -1.0), Osteopenia (T-score between -1.0 and -2.5), or Osteoporosis (T-score at or below -2.5). 10-year Fracture Risk(1): Major Osteoporotic Fracture 7.3% Hip Fracture 0.5% Reported Risk Factors: [place] (), Neck BMD=0.732, BMI=32.3 (1) FRAX(R) Version 3.08. Fracture probability calculated for an untreated patient. Fracture probability may be lower if the patient has received treatment. Previous Exams: Region Exam Age BMD T-score BMD Change BMD Change Date g/cm2 vs Baseline vs Previous AP Spine (L1-L4) 04/19/2025 60 0.862 -1.7 -0.014 (-1.6%) 0.000 (0.0%) 09/26/2022 57 0.861 -1.7 -0.014 (-1.6%) 0.039 (4.7%)* 12/16/2019 54 0.822 -2.0 -0.053 (-6.1%) -0.043 (-4.9%) 04/03/2017 52 0.865 -1.7 -0.011 (-1.2%) -0.011 (-1.2%) 09/17/2013 48 0.876 -1.6 Total Hip(Left) 04/19/2025 60 0.891 -0.4 -0.016 (-1.8%) 0.015 (1.8%) 09/26/2022 57 0.875 -0.5 -0.032 (-3.5%) -0.033 (-3.6%) 12/16/2019 54 0.908 -0.3 0.001 (0.1%)# 0.006 (0.6%) 04/03/2017 52 0.903 -0.3 -0.005 (-0.5%) -0.005 (-0.5%) 09/17/2013 48 0.907 -0.3 Total Hip(Right) 04/19/2025 60 0.937 0.0 0.011 (1.1%)# 0.034 (3.8%)* 09/26/2022 57 0.903 -0.3 -0.023 (-2.5%) -0.033 (-3.5%) 12/16/2019 54 0.936 0.0 0.010 (1.0%)# 0.032 (3.5%)* 04/03/2017 52 0.904 -0.3 -0.022 (-2.4%) -0.022 (-2.4%) 09/17/2013 48 0.927 -0.1 *Denotes significance at 95% confidence level, LSC for AP Spine = 0.022 g/cm2, LSC for Total Hip = 0.027 g/cm2 # Denotes dissimilar scan types or analysis methods Clinical Information Provided by Patient: Has used the following medications: Vitamin D, Calcium Patient maximum height was 61 Menopause Age: 50 No regular weight bearing exercise Drinks caffeinated beverages Onset of menses at age 13 Number of children 2 Impression: The patient has low bone mass, based on the Total Spine T-score. The patient has an estimated ten-year risk of hip fracture of 0.5% and an estimated ten-year risk of major fracture of 7.3%, based on the WHO FRAX algorithm. No significant bone loss was observed. Discussion: BONE DENSITY IS LOW AT ONE OR MORE SKELETAL SITES. This patient's lowest T-score is low at one or more skeletal sites. It meets the World Health Organization's (WHO) criteria for ?low bone mass? (T-score between -1.0 and -2.5). The patient's 10-year risk of fracture as calculated by FRAX is less than the threshold where pharmacological therapy is recommended by the National Osteoporosis Foundation (NOF). However, all treatment decisions require clinical judgment and consideration of individual patient factors, including patient preferences, comorbidities, previous drug use, risk factors not captured in the FRAX model (e.g., frailty, falls, vitamin D deficiency, increased bone turnover, interval significant decline in bone density) and possible under or overestimation of fracture risk by FRAX. The patient should follow a healthful lifestyle (good nutrition with adequate calcium and vitamin D, and appropriate weight-bearing exercise). Follow-Up: Consider repeating this study in 2 to 3 years to reassess this patient's status, or sooner if there is some new clinical indication. Reported by: ARABELLA on 04/19/2025 3:32:00 PM. Reviewed, dictated and finalized at location A.
--- OUTSIDE RECORDS SUMMARY | 2025-04-19 15:03 | XMS_ITS | Clinical Summary ---
Author Organization [facility] Address [address] [place] [address] Care Team Providers Care Application Chemist Name Role Phone Alivia Serrano MD Primary [...] 90 capsule 3 4 04/23/20 25 Active topiramate (TOPAMAX) 100 MG tabletIndication s:Chronic migraine with aura without status migrainosus, not intractable Take 1 tablet (100 mg total) by mouth daily. 90 tablet 3 4 04/23/20 25 Active rizatriptan (MAXALT) 10 MG tabletIndication s:Chronic migraine with aura without status migrainosus, not intractable Take 1 tablet (10 mg total) by mouth as needed for Migraine (prn). May repeat in 2 hours if needed, max dose 30 mg in 24 hours 30 tablet 11 5 02/16/20 26 Active Active Problems Problem Noted Date Diagnosed [...] is working very well. Saw neurology at [facility]. Assessment & Plan (04/05/2024 12:37 PM CDT): [...] 06/26/20 17 Overview (04/05/2024): Takes plaquenil. Sees [facility], Nehemias Hitchcock. Assessment & Plan (04/05/2024 12:36 PM CDT): Managed by rheumatology. Stable. Abnormal cervical Papanicolaou smear 12/31/2011 Overview (04/05/2024): Prior LEEP procedure. Sees Dr. Paulson, independent OBGyn. She has annual Pap smears. Assessment & Plan (04/05/2024 12:36 PM CDT): Will acquire the record. Encounters Date Type Department Care Team Description 02/15/2025 Orders Only [facility] Family Medicine [address] [place] [phone] Ping Londono MA 01/24/2025 Telephone [facility] Family Medicine [facility] [address] [place] [address] [place] [phone] Alivia Serrano MD Results 01/21/2025 Scan Parsely INFO SRVCS Scanned, [facility] Mammogram (SCAN) 01/19/2025 Telephone [facility] Family Medicine [facility] [address] [facility] [address] [place] [phone] Joanie Tariq NP Follow Up Call from Last 3 Months Immunizations Immunization Administration [...] 1:57 PM CDT Height 154.9 cm (5' 1) 01/17/2025 1:57 PM CDT Body Mass Index [...] 1-dose series) 2023 Annual Physical 04/05/2025 04/05/2024 Cervical Cancer Screening Pap Smear (Age 30 to 64) Every 3 Years 04/10/2026 04/10/2023, 02/13/2023, 11/29/2021 Cervical Cancer Screening with HPV 04/10/2026 Mammogram Screening 01/21/2027 01/21/2025, 01/21/2024, 01/21/2024, Additional history exists DTaP, Tdap and Td Vaccines (2 - Td or Tdap) 11/05/2030 11/05/2020 Colorectal Cancer Screening Colonoscopy (10 Years) 09/25/2033 09/25/2023 Zoster Vaccines Completed 09/19/2020, 04/15/2020 COVID-19 Vaccine Completed 06/10/2024, 11/2022, 07/15/2022, Additional history exists PHQ-2 (Physician [place]) Completed 01/17/2025 Meningococcal B Vaccine Aged Out [...] Associated Diagnosis Comments MAMMOGRAM GENERIC (SCAN ORDER) 01/21/2025 COLONOSCOPY GENERIC (SCAN ORDER) 09/25/2023 OUTSIDE CYTOPATH CERV/VAG IN TERPRET (PAP) (SCAN ORDER) 04/10/2023 from Last 3 Months or Most Recently Relevant to Health Maintenance Results * MAMMOGRAM GENERIC (SCAN ORDER) (01/21/2025) Anatomical Region Laterality Modality Other 01/21/2025 [facility] Scanned SCANNING Final Resu lt * COLONOSCOPY GENERIC (SCAN ORDER) (09/25/2023) 09/25/2023 [facility] Scanned SCANNING Final Resu lt * PAP SMEAR (SCAN ORDER) (04/10/2023) 04/10/2023 [facility] Scanned SCANNING Final Resu lt from Last 3 Months or Most Recently Relevant to Health Maintenance Insurance [facility] Care Teams Application Chemist Relationship Specialty Start Date End Date Alivia Serrano MD [address] [place] [address] PCP - General FAMILY PRACTICE 04/05/24
--- OUTSIDE RECORDS SUMMARY | 2025-04-19 15:03 | XMS_ITS | Encounter Summary ---
Author Organization [facility] Address [address] [place] [address] Care Team Providers Care Driver Messenger Name Role Phone Alivia Serrano MD Primary Care Provider + Encounter Details Date Type Department Care Team (Late st Contact Info) Description 06/24/2024 [employer] Message Enc [facility] Family Medicine - [place] [address] [place] [phone] Alivia Serrano MD [address] [place] [phone] Colonoscopy results Social History Tobacco Use [...] on filedocumented in this encounter Care Teams Driver Messenger Relationship Specialty Start Date End Date Alivia Serrano MD [address] [place] [id number] PCP - General FAMILY PRACTICE 04/05/24 documented as of this encounter
--- OUTSIDE RECORDS SUMMARY | 2025-04-19 15:03 | XMS_ITS | Referral Summary ---
Author Organization [facility] [address] Address [address] [place] [address] Phone Care Team Providers Care County Coroner Name Role Phone Ryland Agarwal MD Unavailable [phone] Antonio Grimaldo MD Unavailable [phone] Miscellaneous, Not In File Primary Care Provider Unavailable Encounters Date Type Department Care Team Description 02/22/2025 10:30 AM CDT Office Visit [facility] [address] [place] [phone] Nehemias Hitchcock PA Undifferentiated inflammatory arthritis (Primary Dx); Palindromic rheumatism; long term care pharmacist use of drug 01/18/2025 Orders Only [facility] [address] [place] [phone] Nehemias Hitchcock PA Undifferentiated inflammatory arthritis (Primary Dx); long term care pharmacist use of drug from Last 3 Months Allergies Active Allergy Reactions Criticality Noted Date Comments Cefaclor Penicillins Vancomycin Medications rizatriptan (MAXALT) 10 mg tablet take 1 tablet by oral route once, may repeat at 2 hour intervals; do not exceed 30 mg in 24 hours 0 0 03/13/2016 Active multivitamin capsule qd 0 0 05/17/2016 Active topiramate (TOPAMAX) 100 mg tablet take 1 tablet by oral route 2 times every day 0 0 11/07/2016 Active polyethylene glycol (MIRALAX) 17 gram/dose powder take (17G) by oral route every day mixed with 8 oz. water, juice, soda, coffee or tea 0 0 11/07/2016 Active PROAIR HFA 90 mcg/actuation inhaler INHALE 2 PUFFS BY MOUTH EVERY 4 - 6 HOURS NEEDED 4 01/01/2017 Active ergocalciferol (VITAMIN D) 50,000 unit capsule TAKE 1 CAPSULE BY MOUTH ONCE A WEEK 4 01/18/2017 Active citalopram (CeleXA) 10 mg tablet Take [...] every 30 (thirty) days 1 Syringe 11 04/25/2020 Active estradiol-noret hindrone (ACTIVELLA) 1-0.5 mg per tablet Take 1 tablet by mouth daily Active omega 3-vhi-rnx-fish oil 1,000 mg (120 mg-180 mg) capsule Active aspirin 81 mg chewable tablet Take 1 tablet (81 mg total) by mouth daily Active hydroxychloroqu ine (PLAQUENIL) 200 mg tablet Take 1 tablet (200 mg total) by mouth 2 (two) times a day 180 tablet 02/22/2025 Active Active Problems Problem Noted Date Diagnosed Date Rash 07/16/2024 Assessment & Plan (10/15/2024 10:54 AM RETORT FORKER): Scaly patch over the left inferior posterior [...] 02/21/2022 Assessment & Plan (08/22/2022 2:28 PM RETORT FORKER): Primary complaint at last visit was intermittent [...] given. Assessment & Plan (11/26/2018 5:11 PM RETORT FORKER): Symptoms resolved at this time. Assessment & Plan (08/27/2018 11:36 AM RETORT FORKER): Pain and tenderness localized over the right [...] plantar fascia is seen. Assessment & Plan (02/22/2025 11:35 AM CDT): As above. Assessment & Plan (07/01/2019 10:10 AM CDT): [...] needed. Assessment & Plan (11/26/2018 5:12 PM RETORT FORKER): Patient continues to note intermittent joint flares, [...] needed. Assessment & Plan (08/27/2018 11:35 AM RETORT FORKER): Overall patient notes that she has been [...] today. Assessment & Plan (10/09/2017 11:16 AM RETORT FORKER): Doing well overall. Has minimal complaints today [...] 0.15 cm2 is identified. Assessment & Plan (02/22/2025 11:35 AM CDT): CDAI 5. Overall, Mimi has done fairly well since last visit. She did receive injections in the bilateral feet with steroids per Podiatry about a month ago, which did offer significant benefit. Has occasional discomfort in the knees, which is mild and manageable. No significant peripheral joint complaints recently. At this time, will continue Plaquenil 200 mg b.i.d.. Will continue OTC NSAIDs and Tylenol PRN, she has felt has been more beneficial. If symptoms exacerbate, will proceed with hand or foot ultrasound, which she is to call and schedule. Otherwise, will continue Plaquenil 200 mg b.i.d.. Continue routine eye exams. Recent labs reviewed with patient. Follow-up 3 months. Sooner if needed. Assessment & Plan (10/15/2024 10:53 AM RETORT FORKER): CDAI 12. Mimi notes episodic pain that [...] needed Assessment & Plan (10/17/2023 2:32 PM RETORT FORKER): CDAI 8. Overall, joints have done fairly [...] needed. Assessment & Plan (08/22/2022 2:27 PM RETORT FORKER): CDAI 8. Has remained on hydroxychloroquine since [...] for her. Will check routine labs today. skilled nursing use of drug 02/27/2017 Assessment & Plan (02/22/2025 11:34 AM CDT): Routine labs today. Assessment & Plan (10/15/2024 10:54 AM RETORT FORKER): Routine labs today. Assessment & Plan (07/16/2024 10:46 AM CDT): Routine labs today. Assessment & Plan (04/16/2024 11:19 AM CDT): Routine labs today. Assessment & Plan (10/17/2023 2:32 PM RETORT FORKER): Routine labs today. Assessment & Plan (06/20/2023 11:27 AM CDT): Routine labs today. Assessment & Plan (02/20/2023 2:32 PM CDT): Routine labs today. Due for eye exam. Assessment & Plan (08/22/2022 2:27 PM RETORT FORKER): Routine labs today. Due for eye exam. Assessment & Plan (02/21/2022 10:07 PM CDT): Routine labs today. Due for eye exam. Assessment & Plan (07/01/2019 10:12 AM CDT): Routine labs today. Continue routine eye exams. Tolerating medications well and denies any side effects. Assessment & Plan (11/26/2018 5:11 PM RETORT FORKER): Routine labs today. Continue routine eye exams. Tolerating medications well and denies any side effects. Assessment & Plan (08/27/2018 11:36 AM RETORT FORKER): Routine labs today. Continue routine eye exams. 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 Not on file Not on file Last Filed Vital Signs Vital Sign Reading Time Taken Comments Blood Pressure 126/70 02/22/2025 10:21 AM CDT Pulse 86 02/22/2025 10:21 AM CDT Temperature 36.3 C (97.3 F) 04/25/2020 8:21 AM CDT Respiratory Rate - - Oxygen Saturation 97% 02/22/2025 10:21 AM CDT Inhaled Oxygen Concentration - - Weight 79.8 kg (176 lb) 02/22/2025 10:21 AM CDT Height 154.9 cm (5' 1) 02/22/2025 10:21 AM CDT Body Mass Index 33.25 02/22/2025 10:21 AM CDT Plan of Treatment Not on file Procedures Procedure Name Priority Date/Time Associated Diagnosis Comments CBC WITH AUTO DIFFERENTIAL Routine 02/21/2025 1:36 PM CDT Undifferentiated inflammatory arthritis long term care pharmacist use of drug COMPREHENSIVE METABOLIC PANEL Routine 02/21/2025 1:36 PM CDT Undifferentiated inflammatory arthritis skilled nursing use of drug CRP (ACUTE PHASE) Routine 02/21/2025 1:3 6 PM CDT Undifferentiated inflammatory arthritis long term care pharmacist use of drug ERYTHROCYTE SEDIMENTATION RATE Routine 02/21/2025 1:36 PM CDT Undifferentiated inflammatory arthritis skilled nursing use of drug from Last 3 Months Results * (ABNORMAL) CBC with auto differential (02/21/2025 1:36 PM CDT) WBC 6.8 3.4 - 10.8 x10E3/uL [facility] - 01 RBC 4.94 3.77 - 5.28 x10E6/uL [facility] - 01 Hgb 13.3 11.1 - 15.9 g/dL [facility] - 01 Hct 42.5 34.0 - 46.6 % [facility] - 01 MCV 86 79 - 97 fL [facility] - 01 MCH 26.9 26.6 - 33.0 pg [facility] - 01 MCHC 31.3(L) 31.5 - 35.7 g/dL [facility] - 01 Rdw 16.7(H) 11.7 - 15.4 % [facility] - 01 Platelets 266 150 - 450 x10E3/uL [facility] - 01 Neutrophils pct 62 Not Estab. % [facility] - 01 Lymphs pct 28 Not Estab. % [facility] - 01 Monocytes pct 8 Not Estab. % [facility] - 01 Eosinophils pct 1 Not Estab. % [facility] - 01 Basophil pct 1 Not Estab. % [facility] - 01 Neutrophil abs 4.3 1.4 - 7.0 x10E3/uL [facility] - 01 Lymphs (Absolute) 1.9 0.7 - 3.1 x10E3/uL [facility] - 01 Monocyte abs 0.5 0.1 - 0.9 x10E3/uL [facility] - 01 Eosinophils, abs 0.1 0.0 - 0.4 x10E3/uL [facility] - 01 Basophils, abs 0.1 0.0 - 0.2 x10E3/uL [facility] - 01 Immature Granulocytes 0 Not Estab. % [facility] - 01 Immature Grans (Abs) 0.0 0.0 - 0.1 x10E3/uL [facility] - 01 Blood 02/21/2025 1:36 PM CDT 02/21/2025 Narrative [facility] - 02/22/2025 8:11 AM CDT Performed at: - [facility] [address] [id number] Metal Treater: Joe Miguel PhD, Phone: [phone] us Nehemias ALLEN LAB BLOOD ORDERABLES Fi nal Result [facility] - 01 * Erythrocyte sedimentation rate (02/21/2025 1:36 PM CDT) [facility] Erythrocyte sedimentation rate 12 0 - 40 mm/hr [facility] - 01 Blood 02/21/2025 1:36 PM CDT 02/21/2025 Narrative [facility] - 02/22/2025 9:10 AM CDT Performed at: [facility] [id number] Metal Treater: Joe Miguel PhD, Phone: [phone] Nehemias ALLEN LAB BLOOD ORDERABLES Fi nal Result Performing Organization Address City/[facility]/ZIP Co de Phone Number [facility] - 01 * CRP (acute phase) (02/21/2025 1:36 PM CDT) [facility] CRP <1 0 - 10 mg/L [facility] - 01 Blood 02/21/2025 1:36 PM CDT 02/21/2025 Narrative [facility] - 02/22/2025 8:11 AM CDT Performed at: [facility] [id number] Metal Treater: Joe Miguel PhD, Phone: [phone] Nehemias ALLEN LAB BLOOD ORDERABLES Fi nal Result Performing Organization Address City/[facility]/ZIP Co de Phone Number [facility] - 01 * (ABNORMAL) Comprehensive metabolic panel (02/21/2025 1:36 PM CDT) [facility] Glucose 92 70 - 99 mg/dL [facility] - 01 BUN 12 8 - 27 mg/dL [facility] - 01 Creatinine, Serum 1.03(H) 0.57 - 1.00 mg/dL [facility] - 01 eGFR 62 >59 mL/min/1.7 3 [facility] - 01 BUN/creat ratio 12 12 - 28 [facility] - 01 Sodium 137 134 - 144 mmol/L [facility] - 01 Potassium, sr 4.3 3.5 - 5.2 mmol/L [facility] - 01 Chloride 104 96 - 106 mmol/L [facility] - 01 CO2 20 20 - 29 mmol/L [facility] - 01 Calcium 9.0 8.7 - 10.3 mg/dL [facility] - 01 Protein, sr 6.6 6.0 - 8.5 g/dL [facility] - 01 Albumin 4.3 3.9 - 4.9 g/dL [facility] - 01 Globulin, Total 2.3 1.5 - 4.5 g/dL [facility] - 01 Bilirubin, Total <0.2 0.0 - 1.2 mg/dL [facility] - 01 Alk phos 82 44 - 121 IU/L [facility] - 01 AST 25 0 - 40 IU/L [facility] - 01 ALT 24 0 - 32 IU/L [facility] - 01 Blood 02/21/2025 1:3 6 PM CDT 02/21/2025 Narrative [facility] - 02/22/2025 8:11 AM CDT Performed at: [facility] [address] [id number] Metal Treater: Joe Miguel PhD, Phone: [phone] Nehemias ALLEN LAB BLOOD ORDERABLES nal Result [facility] - 01 from Last 3 Months Insurance [facility] [place] [place] [employer] [place] Care Teams County Coroner Relationship Specialty Start Date End Date Miscellaneous, Not In File PCP - General 07/15/24 Ryland Agarwal MD [address] [place] [address] Rheumatology 09/01/17 Antonio Grimaldo MD [address] [place] [address] Referring Physician Diagnostic Radiology 02/21/22
--- OUTSIDE RECORDS SUMMARY | 2025-04-19 15:03 | XMS_ITS | Continuity of Care Document ---
Author Organization [facility] Address [address] [place] [address] Phone Care Team Providers Care Electrotherapist Name Role Phone No Hauser Unavailable Unavailable Advance Directives Directive Yes / No Effective Date File Name No Information Encounters Encounter Description Practice Location Reason(s) For Visit Diagnoses Date Provider Providers Copied on Encounter [facility], [address], [place], [place], [id number], [place] tel:[phone] [facility] [employer] JAMA Lange No Information [address] Analisa Sarabia. [address], [place], [address], [place]. tel:[phone] Family History Family Member Type Diagnosis Age At Onset No Information Payers Payer name Insurance type Covered libertarian ID Authoriza tion(s) No Information Social History [...]
--- OUTSIDE RECORDS SUMMARY | 2025-04-19 15:03 | XMS_ITS | Clinical Summary ---
Author Organization [facility] Address [address] [place] [address] Care Team Providers Care Manager Transportation Planning Name Role Phone Chucho Bentley Primary Care Provider Source Comments [facility],non-owned Affiliates and Associated Physician Practices is amultiple site organization consisting of ambulatory clinics and hospital sitesin [place], [place], [place] and [place]. This disclosure is being madepursuant to the Care Everywhere program and may not contain all information available regarding this patient. Last updated 18.[facility] Telepathy Social History Tobacco Use Types Packs/Day Years [...] SCREENING 1965 LIPID TESTING 1965 MAMMOGRAM 1963 HIV SCREENING 1978 HEPATITIS C SCREENING 03/26/1981 DTAP/TDAP/TD VACCINES (1 - Tdap) 1982 PAP SMEAR 1984 PNEUMOCOCCAL VACCINE 50+ (1 of 1 - PCV) 2013 ZOSTER VACCINE (1 of 2) 2013 COVID-19 VACCINE (1 - 2023-2 5 season) 2024 DEPRESSION SCREENING 09/22/2024 INFLUENZA VACCINE (#1) 2025 Respiratory Syncytial Virus (RSV) Vaccine Pt: [...] patient's age to complete this topic Insurance [employer] [facility] SELF PAY NO INSURANCE Member Subscriber Plan / Payer (Ef fective for All Dates) Name:Annika Garrison Member ID:Not on file Relation to Subscriber:Not on file Name:ANNIKA GARRISON Subscriber ID:Not on file Address: [address] [place] [address] Payer ID:Not on file Group ID:Not on file Type:Self Pay Address: [place], [place] Care Teams Manager Transportation Planning Relationship Specialty Start Date End Date Chucho Bentley DO [address] [place] [address] PCP - General Internal Medicine 03/13/16
--- OUTSIDE RECORDS SUMMARY | 2025-04-19 15:03 | XMS_ITS | Clinical Summary ---
Author Organization 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
--- OUTSIDE RECORDS SUMMARY | 2025-04-19 15:03 | XMS_ITS | Clinical Summary ---
Author Organization [facility] [facility] Address [address] [place] [address] Phone Care Team Providers Care Coat Check Attendant Name Role Phone Ryland Agarwal MD Unavailable [phone] Antonio Grimaldo MD Unavailable [phone] Miscellaneous, Not In File Primary Care Provider [...] 1 tablet by mouth daily Active omega 0-vmr-wby-fish oil 1,000 mg (120 mg-180 mg) capsule Active aspirin 81 mg chewable tablet Take 1 tablet (81 mg total) by mouth daily Active hydroxychloroqu ine (PLAQUENIL) 200 mg tablet Take 1 tablet (200 mg total) by mouth 2 (two) times a day 180 tablet 02/22/2025 Active Active Problems Problem Noted Date Diagnosed Date Rash 07/16/2024 Assessment & Plan (10/15/2024 10:54 AM [employer]): Scaly patch over the left inferior posterior [...] 02/21/2022 Assessment & Plan (08/22/2022 2:28 PM [employer]): Primary complaint at last visit was intermittent [...] given. Assessment & Plan (11/26/2018 5:11 PM [employer]): Symptoms resolved at this time. Assessment & Plan (08/27/2018 11:36 AM [employer]): Pain and tenderness localized over the right [...] needed. Assessment & Plan (11/26/2018 5:12 PM [employer]): Patient continues to note intermittent joint flares, [...] needed. Assessment & Plan (08/27/2018 11:35 AM [employer]): Overall patient notes that she has been [...] today. Assessment & Plan (10/09/2017 11:16 AM [employer]): Doing well overall. Has minimal complaints today [...] needed. Assessment & Plan (10/15/2024 10:53 AM [employer]): CDAI 12. Mimi notes episodic pain that [...] needed Assessment & Plan (10/17/2023 2:32 PM [employer]): CDAI 8. Overall, joints have done fairly [...] needed. Assessment & Plan (08/22/2022 2:27 PM [employer]): CDAI 8. Has remained on hydroxychloroquine since last visit. Stop meloxicam due to mild renal insufficiency. Overall, joints have done fairly well with minimal complaints. Low disease activity per CDAI. Will continue Plaquenil 200 mg b.i.d.. Routine labs today. Follow-up 6 months. Sooner if needed. Assessment & Plan (02/21/2022 10:06 PM CDT): Miim is a pleasant 56 yoF last seen [...] for her. Will check routine labs today. 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 Assessment & Plan (10/15/2024 10:54 AM [employer]): Routine labs today. Assessment & Plan (07/16/2024 10:46 AM CDT): Routine labs today. Assessment & Plan (04/16/2024 11:19 AM CDT): Routine labs today. Assessment & Plan (10/17/2023 2:32 PM [employer]): Routine labs today. Assessment & Plan (06/20/2023 11:27 AM CDT): Routine labs today. Assessment & Plan (02/20/2023 2:32 PM CDT): Routine labs today. Due for eye exam. Assessment & Plan (08/22/2022 2:27 PM [employer]): Routine labs today. Due for eye exam. Assessment & Plan (02/21/2022 10:07 PM CDT): Routine labs today. Due for eye exam. Assessment & Plan (07/01/2019 10:12 AM CDT): Routine labs today. Continue routine eye exams. Tolerating medications well and denies any side effects. Assessment & Plan (11/26/2018 5:11 PM [employer]): Routine labs today. Continue routine eye exams. Tolerating medications well and denies any side effects. Assessment & Plan (08/27/2018 11:36 AM [employer]): Routine labs today. Continue routine eye exams. 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, 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 Not on file Not [...] 02/22/2025 10:21 AM CDT Plan of Treatment Health Maintenance Due Date Last Done Comments Breast Cancer Screening-Mammogram 1965 Cervical Cancer Screening 1963 Colon Cancer Screening-Colonoscopy 1963 Depression Screening 1963 Hepatitis C Screening 1963 Hepatitis B Screening 1981 Regular Well Visit/Exam 18-64 1981 Pneumococcal vaccine <65 (1 of 2 - PCV) 1982 Influenza Vaccine (#1) 2025 3, 07/15/2019, 07/13/2013 DTaP/Tdap/Td Vaccine (2 - Td or Tdap) 11/05/2030 Zoster Vaccine Completed 09/19/2020, 04/15/2020 Procedures Procedure Name Priority Date/Time Associated Diagnosis Comments CBC WITH AUTO DIFFERENTIAL Routine 02/21/2025 1:36 PM CDT Undifferentiated inflammatory arthritis assisted use of drug COMPREHENSIVE METABOLIC PANEL Routine 02/21/2025 1:36 PM CDT Undifferentiated inflammatory arthritis assisted use of drug CRP (ACUTE PHASE) Routine 02/21/2025 1:3 6 PM CDT Undifferentiated inflammatory arthritis assisted use of drug ERYTHROCYTE SEDIMENTATION RATE Routine 02/21/2025 1:36 PM CDT Undifferentiated inflammatory arthritis assisted use of drug from Last 3 Months [...] - 02/22/2025 8:11 AM CDT Performed at: [address] [id number] [employer]arms Assembly Supervisor: Joe Miguel PhD, Phone: [phone] Nehemias ALLEN LAB BLOOD ORDERABLES Fi nal Result Performing Organization Address [facility] de Phone Number [facility] - * Erythrocyte sedimentation rate (02/21/2025 1:36 PM CDT) Erythrocyte sedimentation rate 12 0 - 40 mm/hr [facility] - 01 Blood 02/21/2025 1:36 PM CDT 02/21/2025 Narrative [facility] - 02/22/2025 9:10 AM CDT Performed at: [address] [id number] [employer] Supervisor: Joe Miguel PhD, Phone: [phone] Nehemias ALLEN LAB BLOOD ORDERABLES Fi nal Result Performing Organization Address [facility]/ZIP Co de Phone Number [facility] - * CRP (acute phase) (02/21/2025 1:36 PM CDT) CRP <1 0 - 10 mg/L [facility] - 01 Blood 02/21/2025 1:36 PM CDT 02/21/2025 Narrative [facility] - 02/22/2025 8:11 AM CDT Performed at: [facility] [id number] [employer] Supervisor: Joe Miguel PhD, Phone: [phone] Nehemias ALLEN LAB BLOOD ORDERABLES Fi nal Result [facility] - 01 * (ABNORMAL) Comprehensive metabolic panel (02/21/2025 1:36 PM CDT) [facility] Glucose 92 70 - 99 mg/dL [...] 32 IU/L [facility] - 01 Blood 02/21/2025 1:36 PM CDT 02/21/2025 Narrative [facility] - 02/22/2025 8:11 AM CDT Performed at: [facility] [id number] [employer] Supervisor: Joe Miguel PhD, Phone: [phone] Nehemias ALLEN LAB BLOOD ORDERABLES nal Result [facility] - 01 from Last 3 Months Insurance [place] Frugalo MD [employer] MD Care Teams Coat Check Attendant Relationship Specialty Start Date End Date Miscellaneous, Not In File PCP - General 07/15/24 Ryland Agarwal MD [address] [place] [address] Rheumatology 09/01/17 Antonio Grimaldo MD [address] [place] [address] Referring Physician Diagnostic Radiology 02/21/22
== END 2025-04-19 14:55 | disposition home or self-care (01) ==
LOC: ANHIMG 14:55
PROVIDERS: PCP Student in an Organized Health Care Education/Training Program; Visit Provider Obstetrics & Gynecology Gynecology
DX: M85.89 Other specified disorders of bone density and structure, multiple sites (principal); Z78.0 Asymptomatic menopausal state
CPT/HCPCS: 77080